=== PATIENT | female | born 1955 | race African-American/Black ===

== ENCOUNTER 2019-08-02 17:14 | Inpatient (IN) ==
[2019-08-02] MEDS ORDERED: ONDANSETRON 4 MG/2 ML VIAL IV PRN (22:32)
[2019-08-02] MEDS ORDERED: PROMETHAZINE 25 MG/1 ML VIAL IM PRN (22:32)
[2019-08-02] MEDS ORDERED: diphenhydrAMINE CAP 25 MG CAPSULE PO PRN (22:32)
[2019-08-02] MEDS ORDERED: NICOTINE 21 MG/24 HR PATCH TRANSDERM PRN (22:32)
[2019-08-02] MEDS ORDERED: MORPHINE 4 MG/1 ML VIAL IV PRN (22:32)
[2019-08-02] MEDS ORDERED: BISACODYL 5 MG TABLET PO PRN (22:32)
[2019-08-02] MEDS ORDERED: ACETAMINOPHEN 325 MG TABLET PO PRN (22:32)
[2019-08-02] MEDS ORDERED: methylPREDNISolone SOD SUC 125 MG/2 ML VIAL IV ONE (23:00)
[2019-08-02 23:03] LABS: Basophils % 0.1 % (0.0-0.8); Eosinophils # 0.1 10*3/uL (0.0-0.87); Eosinophils % 0.8 % (0.00-10.9); Hemoglobin 8.3 GM/DL (12.0-16.0); Immature Granulocytes % 0.5 %; Immature Granulocytes Absolute 0.06 #; Lymphocytes # 1.3 10*3/uL (1.4-4.0); Mean Corpuscular HGB Conc 30.7 GM/DL (32-36); Mean Corpuscular Volume 87.9 FL (87-102); Mean Platelet Volume 9.1 FL (9.6-12.0); Neutrophils % 82.6 % (38.7-73.9); Platelet Count 456 T/CUMM (130-400); Red Blood Count 3.07 MC/CUMM (3.8-5.5); Red Cell Distribution Width 15.8 % (9.3-17.3)
[2019-08-02 23:31] LABS: Risk Ratio 3.1; VLDL CHOLESTEROL 30.4 MG/DL
[2019-08-02 23:34] LABS: Folate 4.9 NG/ML (5.4-24.0); Vitamin B12 636 PG/ML (211-911)
[2019-08-02 23:38] LABS: Alanine Aminotransferase 13 U/L (13-56); Albumin 2.2 G/DL (3.4-5.0); Alkaline Phosphatase 113 U/L (45-117); Aspartate Amino Transferase 10 U/L (0-37); Bilirubin,Total < 0.39 MG/DL (0.2-1.0); Blood Urea Nitrogen 26 MG/DL (7-18); Calcium 8.8 MG/DL (8.5-10.1); Glucose 210 MG/DL (74-106); Osmolality,Calculated 267.1 MOS/KG (273-304); Total Protein 7.9 G/DL (6.4-8.3)
[2019-08-02 23:40] LABS: Estimated Glom Filtration Rate 0 ML/MIN
[2019-08-03 00:07] LABS: Sedimentation Rate-Westergren 88 MM/HR (0-30)
[2019-08-03] MEDS ORDERED: rOPINIRole 0.25 MG TABLET PO ONE ×2 (00:18→23:30)
[2019-08-03] MEDS: ALBUTEROL/IPRATROPIUM 3 ML NEB RESP TX SCH ×4 (01:01→19:35)
[2019-08-03] MEDS: ZALEPLON 5 MG CAPSULE PO PRN ×2 (03:05→21:23)
[2019-08-03] MEDS ORDERED: DEXTROSE 50% 25 GM/50 ML VIAL IV PRN (03:49)
[2019-08-03] MEDS ORDERED: GLUCAGON 1 MG VIAL IM PRN (03:49)
[2019-08-03 04:15] LABS: Amorphous Crystals,Urine Occasional /HPF (Few); Apearance,Urine Slightly Hazy (Clear); Bacteria,Urine Occasional /HPF (Few); Bilirubin,Urine Negative (Negative); Blood, Urine Small mg/dL (Negative); Glucose,Urine (UA) 150 mg/dL (Negative); Ketones,Urine Negative (Negative); Nitrite,Urine Negative (Negative); Protein,Urine >=500 MG/DL; RBC,Urine 1 /HPF (0-4); Squamous Epithelial Cell,Urine Occasional /HPF (0-10); Urine Color Yellow (Yellow); Urine Specific Gravity 1.005 (1.001-1.035); Urine Urobilinogen < 2.0 EU/DL (0.2-1.0); WBC,Urine 1 /HPF (0-6)
[2019-08-03] MEDS ORDERED: FUROSEMIDE 40 MG/4 ML VIAL IV SCH (08:00)
[2019-08-03] MEDS: INSULIN REGULAR 100 UNIT/ML SUBCUT SCH ×4 (08:36→21:20)
[2019-08-03 08:48] LABS: Hemoglobin A1 (Alkaline) 97.1 % (96.5-98.5); Hemoglobin A2 (Alkaline) 2.9 % (1.5-3.5)
[2019-08-03] MEDS ORDERED: ENALAPRIL 10 MG TABLET PO SCH (12:30)
[2019-08-03] MEDS ORDERED: amLODIPine 5 MG TABLET PO SCH (12:30)
[2019-08-03] MEDS ORDERED: DILTIAZEM CD 120 MG CAPSULE PO SCH (12:42)
[2019-08-03] MEDS ORDERED: hydrALAZINE 20 MG/1 ML VIAL IV PRN (12:43)
[2019-08-03] MEDS: metOLazone 5 MG TABLET PO SCH (15:34)
[2019-08-03] MEDS: FUROSEMIDE 40 MG/4 ML VIAL IV SCH (15:34)
[2019-08-03] MEDS ORDERED: amLODIPine 10 MG TABLET PO ONE (18:43)
[2019-08-03] MEDS: carvediloL 12.5 MG TABLET PO SCH (21:20)
[2019-08-03] MEDS: LOXAPINE SUCCINATE 10 MG PO SCH (21:20)
[2019-08-04] MEDS: ALBUTEROL/IPRATROPIUM 3 ML NEB RESP TX SCH ×4 (01:42→19:07)
[2019-08-04] MEDS: LEVOTHYROXINE 150 MCG TABLET PO SCH (06:16)
[2019-08-04] MEDS: INSULIN LISPRO 100 UNIT/ML SUBCUT SCH (08:25)
[2019-08-04] MEDS: INSULIN REGULAR 100 UNIT/ML SUBCUT SCH ×4 (08:25→20:36)
[2019-08-04] MEDS: FUROSEMIDE 40 MG/4 ML VIAL IV SCH ×2 (08:26→15:57)
[2019-08-04] MEDS: INSULIN GLARGINE 100 UNIT/ML SUBCUT SCH (08:26)
[2019-08-04] MEDS: amLODIPine 10 MG TABLET PO SCH (08:26)
[2019-08-04] MEDS: carvediloL 12.5 MG TABLET PO SCH ×2 (08:27→20:36)
[2019-08-04] MEDS: LOXAPINE SUCCINATE 10 MG PO SCH (08:27)
[2019-08-04] MEDS: metOLazone 5 MG TABLET PO SCH (08:27)
[2019-08-04 08:56] LABS: Osmolality,Calculated 259.9 MOS/KG (273-304)
[2019-08-04] MEDS ORDERED: BENZTROPINE 1 MG TABLET PO SCH (09:00)
[2019-08-04] MEDS ORDERED: SERTRALINE 25 MG TABLET PO SCH (09:00)
[2019-08-04] MEDS ORDERED: SODIUM POLYSTYRENE SULFATE 15 GM/60 ML BOTTLE PO STA (09:19)
[2019-08-04 17:07] LABS: Calcium 8.8 MG/DL (8.5-10.1); Osmolality,Calculated 261.6 MOS/KG (273-304)
[2019-08-04] MEDS: SERTRALINE 25 MG TABLET PO SCH (20:36)
[2019-08-04] MEDS: BENZTROPINE 1 MG TABLET PO SCH (20:36)
[2019-08-04] MEDS: LOXAPINE SUCCINATE 20 MG PO SCH (20:37)
[2019-08-05] MEDS: ALBUTEROL/IPRATROPIUM 3 ML NEB RESP TX SCH ×4 (00:46→20:05)
[2019-08-05 05:03] LABS: Basophils % 0.3 % (0.0-0.8); Eosinophils # 0.1 10*3/uL (0.0-0.87); Eosinophils % 0.5 % (0.00-10.9); Hematocrit 25.3 VOL% (35.7-47.0); Hemoglobin 7.7 GM/DL (12.0-16.0); Immature Granulocytes % 0.6 %; Immature Granulocytes Absolute 0.08 #; Lymphocytes # 1.7 10*3/uL (1.4-4.0); Lymphocytes % 13.1 % (21.3-54.2); Mean Corpuscular HGB Conc 30.4 GM/DL (32-36); Mean Corpuscular Volume 87.8 FL (87-102); Mean Platelet Volume 9.1 FL (9.6-12.0); Monocytes % 7.7 % (1.7-12.7); Neutrophils % 77.8 % (38.7-73.9); Platelet Count 493 T/CUMM (130-400); Red Blood Count 2.88 MC/CUMM (3.8-5.5); Red Cell Distribution Width 15.6 % (9.3-17.3); White Blood Count 13.3 T/CUMM (4-12)
[2019-08-05 05:28] LABS: Calcium 8.8 MG/DL (8.5-10.1); Osmolality,Calculated 267.4 MOS/KG (273-304)
[2019-08-05] MEDS: LEVOTHYROXINE 150 MCG TABLET PO SCH (06:13)
[2019-08-05] MEDS: INSULIN REGULAR 100 UNIT/ML SUBCUT SCH ×4 (08:59→23:27)
[2019-08-05] MEDS: amLODIPine 10 MG TABLET PO SCH (09:00)
[2019-08-05] MEDS: carvediloL 12.5 MG TABLET PO SCH ×2 (09:00→23:26)
[2019-08-05] MEDS: FUROSEMIDE 40 MG/4 ML VIAL IV SCH (09:00)
[2019-08-05] MEDS: INSULIN LISPRO 100 UNIT/ML SUBCUT SCH (09:02)
[2019-08-05] MEDS: INSULIN GLARGINE 100 UNIT/ML SUBCUT SCH (09:03)
[2019-08-05] MEDS: FUROSEMIDE 80 MG TABLET PO SCH (17:53)
[2019-08-05] MEDS: BENZTROPINE 1 MG TABLET PO SCH (23:26)
[2019-08-05] MEDS: SERTRALINE 25 MG TABLET PO SCH (23:26)
[2019-08-05] MEDS: LOXAPINE SUCCINATE 20 MG PO SCH (23:27)
[2019-08-05] MEDS: ZALEPLON 5 MG CAPSULE PO PRN (23:32)
[2019-08-06] MEDS: ALBUTEROL/IPRATROPIUM 3 ML NEB RESP TX SCH ×4 (02:12→19:39)
[2019-08-06 03:44] LABS: Basophils % 0.1 % (0.0-0.8); Eosinophils # 0.1 10*3/uL (0.0-0.87); Eosinophils % 0.7 % (0.00-10.9); Hematocrit 23.9 VOL% (35.7-47.0); Hemoglobin 7.4 GM/DL (12.0-16.0); Immature Granulocytes % 0.5 %; Immature Granulocytes Absolute 0.07 #; Lymphocytes % 14.2 % (21.3-54.2); Mean Corpuscular Volume 86.6 FL (87-102); Mean Platelet Volume 9.2 FL (9.6-12.0); Monocytes % 9.1 % (1.7-12.7); Neutrophils % 75.4 % (38.7-73.9); Platelet Count 436 T/CUMM (130-400); Red Blood Count 2.76 MC/CUMM (3.8-5.5); Red Cell Distribution Width 15.4 % (9.3-17.3); White Blood Count 13.8 T/CUMM (4-12)
[2019-08-06 04:03] LABS: Calcium 8.3 MG/DL (8.5-10.1); Osmolality,Calculated 271.4 MOS/KG (273-304)
[2019-08-06] MEDS: LEVOTHYROXINE 150 MCG TABLET PO SCH (06:14)
[2019-08-06] MEDS: INSULIN GLARGINE 100 UNIT/ML SUBCUT SCH (09:01)
[2019-08-06] MEDS: INSULIN LISPRO 100 UNIT/ML SUBCUT SCH (09:02)
[2019-08-06] MEDS: carvediloL 12.5 MG TABLET PO SCH ×2 (09:03→21:50)
[2019-08-06] MEDS: FUROSEMIDE 80 MG TABLET PO SCH ×2 (09:03→15:25)
[2019-08-06] MEDS: amLODIPine 10 MG TABLET PO SCH (09:03)
[2019-08-06] MEDS: INSULIN REGULAR 100 UNIT/ML SUBCUT SCH ×4 (09:08→21:51)
[2019-08-06] MEDS ORDERED: SODIUM CHLORIDE 0.9% 1,000 ML IV PRN (10:01)
[2019-08-06] MEDS: POLYETHYLENE GLYCOL POWDER 17 GM PACK PO SCH ×2 (15:25→21:50)
[2019-08-06] MEDS: LOXAPINE SUCCINATE 20 MG PO SCH (21:50)
[2019-08-06] MEDS: SERTRALINE 25 MG TABLET PO SCH (21:50)
[2019-08-06] MEDS: PANTOPRAZOLE 40 MG TABLET PO SCH (21:50)
[2019-08-06] MEDS: BENZTROPINE 1 MG TABLET PO SCH (21:50)
[2019-08-06] MEDS: ZALEPLON 5 MG CAPSULE PO PRN (21:50)
[2019-08-07] MEDS: ALBUTEROL/IPRATROPIUM 3 ML NEB RESP TX SCH ×4 (00:37→19:45)
[2019-08-07 04:40] LABS: Basophils % 0.2 % (0.0-0.8); Eosinophils # 0.1 10*3/uL (0.0-0.87); Eosinophils % 0.6 % (0.00-10.9); Hematocrit 27.9 VOL% (35.7-47.0); Hemoglobin 8.9 GM/DL (12.0-16.0); Immature Granulocytes % 0.5 %; Immature Granulocytes Absolute 0.07 #; Lymphocytes # 1.6 10*3/uL (1.4-4.0); Lymphocytes % 12.2 % (21.3-54.2); Mean Corpuscular HGB Conc 31.9 GM/DL (32-36); Mean Corpuscular Volume 83.5 FL (87-102); Mean Platelet Volume 9.2 FL (9.6-12.0); Monocytes % 9.5 % (1.7-12.7); Platelet Count 417 T/CUMM (130-400); Red Blood Count 3.34 MC/CUMM (3.8-5.5); Red Cell Distribution Width 15.7 % (9.3-17.3); White Blood Count 12.8 T/CUMM (4-12)
[2019-08-07 05:44] LABS: Calcium 8.2 MG/DL (8.5-10.1); Osmolality,Calculated 274.1 MOS/KG (273-304)
[2019-08-07] MEDS: LEVOTHYROXINE 150 MCG TABLET PO SCH (06:25)
[2019-08-07] MEDS ORDERED: MAGNESIUM SULF RIDER 4 GM in PREMIX 1 EACH IV PRN (07:43)
[2019-08-07] MEDS ORDERED: MAGNESIUM SULF RIDER 2 GM in PREMIX 1 EACH IV PRN (07:43)
[2019-08-07] MEDS: carvediloL 12.5 MG TABLET PO SCH ×2 (09:43→21:46)
[2019-08-07] MEDS: POLYETHYLENE GLYCOL POWDER 17 GM PACK PO SCH ×3 (09:43→21:46)
[2019-08-07] MEDS: PANTOPRAZOLE 40 MG TABLET PO SCH ×2 (09:43→18:00)
[2019-08-07] MEDS: FUROSEMIDE 80 MG TABLET PO SCH (09:43)
[2019-08-07] MEDS: amLODIPine 10 MG TABLET PO SCH (09:43)
[2019-08-07] MEDS: INSULIN REGULAR 100 UNIT/ML SUBCUT SCH ×4 (09:44→21:47)
[2019-08-07] MEDS: INSULIN LISPRO 100 UNIT/ML SUBCUT SCH (09:44)
[2019-08-07] MEDS: INSULIN GLARGINE 100 UNIT/ML SUBCUT SCH (09:44)
[2019-08-07] MEDS ORDERED: SODIUM CHLORIDE 0.9% 1,000 ML IV SCH (15:00)
[2019-08-07] MEDS: ZALEPLON 5 MG CAPSULE PO PRN (21:46)
[2019-08-07] MEDS: SERTRALINE 25 MG TABLET PO SCH (21:46)
[2019-08-07] MEDS: BENZTROPINE 1 MG TABLET PO SCH (21:46)
[2019-08-07] MEDS: LOXAPINE SUCCINATE 20 MG PO SCH (21:47)
[2019-08-07 22:32] LABS: Calcium 8.7 MG/DL (8.5-10.1); Osmolality,Calculated 269.5 MOS/KG (273-304)
[2019-08-08] MEDS: ALBUTEROL/IPRATROPIUM 3 ML NEB RESP TX SCH ×3 (00:05→13:38)
[2019-08-08 03:19] LABS: Basophils % 0.2 % (0.0-0.8); Eosinophils # 0.1 10*3/uL (0.0-0.87); Eosinophils % 0.7 % (0.00-10.9); Hematocrit 29.9 VOL% (35.7-47.0); Hemoglobin 9.4 GM/DL (12.0-16.0); Immature Granulocytes % 0.5 %; Immature Granulocytes Absolute 0.07 #; Lymphocytes # 1.6 10*3/uL (1.4-4.0); Lymphocytes % 11.6 % (21.3-54.2); Mean Corpuscular HGB Conc 31.4 GM/DL (32-36); Mean Corpuscular Volume 84.5 FL (87-102); Monocytes % 9.1 % (1.7-12.7); Neutrophils % 77.9 % (38.7-73.9); Platelet Count 432 T/CUMM (130-400); Red Blood Count 3.54 MC/CUMM (3.8-5.5); Red Cell Distribution Width 15.7 % (9.3-17.3); White Blood Count 13.4 T/CUMM (4-12)
[2019-08-08 03:37] LABS: Calcium 8.2 MG/DL (8.5-10.1); Osmolality,Calculated 274.1 MOS/KG (273-304)
[2019-08-08] MEDS: LEVOTHYROXINE 150 MCG TABLET PO SCH (06:30)
[2019-08-08] MEDS: INSULIN REGULAR 100 UNIT/ML SUBCUT SCH ×2 (08:13→12:19)
[2019-08-08] MEDS ORDERED: propofoL 200 MG/20 ML VIAL IV ONE (09:00)
[2019-08-08] MEDS ORDERED: LIDOCAINE 2% 5 ML VIAL ONE (09:00)
[2019-08-08] MEDS: PANTOPRAZOLE 40 MG TABLET PO SCH (09:10)
[2019-08-08] MEDS: carvediloL 12.5 MG TABLET PO SCH (09:10)
[2019-08-08] MEDS: amLODIPine 10 MG TABLET PO SCH (09:10)
[2019-08-08] MEDS: INSULIN LISPRO 100 UNIT/ML SUBCUT SCH (09:10)
[2019-08-08] MEDS: INSULIN GLARGINE 100 UNIT/ML SUBCUT SCH (09:11)
[2019-08-08] MEDS: POLYETHYLENE GLYCOL POWDER 17 GM PACK PO SCH ×2 (09:11→15:23)
[2019-08-08 12:52] VITALS: BP 145/71
[2019-08-10] MEDS ORDERED: NON-FORMULARY MEDICATION (Dulaglutide [Trulicity] 1.5 MG) SUBCUT SCH (09:00)
== END 2019-08-08 15:26 | disposition home or self-care (01) | DRG 698 ==
LOC: SUATTDRO 20:44 → N.TELEN 20:44
PROVIDERS: ADMIT Internal Medicine; ATTEND Internal Medicine

== ENCOUNTER 2019-08-18 18:50 | Inpatient (IN) ==
[2019-08-18 20:23] LABS: Basophils % 0.1 % (0.0-0.8); Eosinophils # 0.1 10*3/uL (0.0-0.87); Eosinophils % 0.4 % (0.00-10.9); Hematocrit 28.8 VOL% (35.7-47.0); Hemoglobin 9.6 GM/DL (12.0-16.0); Immature Granulocytes % 0.7 %; Immature Granulocytes Absolute 0.09 #; Lymphocytes # 1.6 10*3/uL (1.4-4.0); Lymphocytes % 12.4 % (21.3-54.2); Mean Corpuscular HGB Conc 33.3 GM/DL (32-36); Mean Corpuscular Volume 79.3 FL (87-102); Mean Platelet Volume 8.8 FL (9.6-12.0); Monocytes % 7.5 % (1.7-12.7); Neutrophils % 78.9 % (38.7-73.9); Platelet Count 399 T/CUMM (130-400); Red Blood Count 3.63 MC/CUMM (3.8-5.5); Red Cell Distribution Width 14.5 % (9.3-17.3); White Blood Count 12.5 T/CUMM (4-12)
[2019-08-18 20:38] LABS: Apearance,Urine CLEAR (Clear); Bilirubin,Urine Negative (Negative); Blood, Urine Small mg/dL (Negative); Glucose,Urine (UA) 50 mg/dL (Negative); Ketones,Urine Negative (Negative); Nitrite,Urine Negative (Negative); Protein,Urine 100 MG/DL; Squamous Epithelial Cell,Urine Occasional /HPF (0-10); Urine Color Yellow (Yellow); Urine Specific Gravity 1.006 (1.001-1.035); Urine Urobilinogen < 2.0 EU/DL (0.2-1.0); WBC,Urine 1 /HPF (0-6)
[2019-08-18 20:47] LABS: Albumin 2.2 G/DL (3.4-5.0); Bilirubin,Total 0.4 MG/DL (0.2-1.0); Calcium 8.4 MG/DL (8.5-10.1); Osmolality,Calculated 240.2 MOS/KG (273-304); Total Protein 7.7 G/DL (6.4-8.3)
[2019-08-18] MEDS ORDERED: SODIUM CHLORIDE 0.9% 1,000 ML IV STA (21:48)
[2019-08-18] MEDS ORDERED: guaiFENesin/DM ER 600-30 MG TABLET PO PRN (22:04)
[2019-08-18] MEDS ORDERED: GLUCAGON 1 MG VIAL IM PRN (22:04)
[2019-08-18] MEDS ORDERED: ONDANSETRON 4 MG/2 ML VIAL IV PRN (22:04)
[2019-08-18] MEDS ORDERED: NICOTINE 21 MG/24 HR PATCH TRANSDERM PRN (22:04)
[2019-08-18] MEDS ORDERED: ZALEPLON 5 MG CAPSULE PO PRN (22:04)
[2019-08-18] MEDS ORDERED: LACTULOSE 20 GM/30 ML UDCUP PO PRN (22:04)
[2019-08-18] MEDS ORDERED: SODIUM CHLORIDE 3% INJ 500 ML IV SCH (22:30)
[2019-08-18] MEDS ORDERED: DEXTROSE 10% 250 ML BAG IV PRN (22:31)
[2019-08-18] MEDS: HEPARIN 5,000 UNIT/1 ML VIAL SUBCUT SCH (23:00)
[2019-08-18] MEDS ORDERED: TOLVAPTAN 15 MG TABLET PO ONE (23:00)
[2019-08-19] MEDS: rOPINIRole 0.25 MG TABLET PO SCH ×2 (00:21→21:23)
[2019-08-19] MEDS: LORazepam 0.5 MG TABLET PO PRN (02:00)
[2019-08-19 02:21] LABS: Basophils % 0.2 % (0.0-0.8); Eosinophils # 0.1 10*3/uL (0.0-0.87); Eosinophils % 0.7 % (0.00-10.9); Hematocrit 27.6 VOL% (35.7-47.0); Hemoglobin 9.1 GM/DL (12.0-16.0); Immature Granulocytes % 0.6 %; Immature Granulocytes Absolute 0.07 #; Lymphocytes # 1.6 10*3/uL (1.4-4.0); Lymphocytes % 12.8 % (21.3-54.2); Mean Corpuscular Volume 80.2 FL (87-102); Mean Platelet Volume 8.6 FL (9.6-12.0); Monocytes % 8.2 % (1.7-12.7); Neutrophils % 77.5 % (38.7-73.9); Platelet Count 375 T/CUMM (130-400); Red Blood Count 3.44 MC/CUMM (3.8-5.5); Red Cell Distribution Width 14.3 % (9.3-17.3); White Blood Count 12.4 T/CUMM (4-12)
[2019-08-19 02:56] LABS: Alanine Aminotransferase 15 U/L (13-56); Alkaline Phosphatase 92 U/L (45-117); Aspartate Amino Transferase 18 U/L (0-37); Bilirubin,Total < 0.39 MG/DL (0.2-1.0); Blood Urea Nitrogen 46 MG/DL (7-18); Calcium 8.1 MG/DL (8.5-10.1); Estimated Glom Filtration Rate 22 ML/MIN; Glucose 76 MG/DL (74-106); Osmolality,Calculated 248.5 MOS/KG (273-304); Total Protein 7.5 G/DL (6.4-8.3)
[2019-08-19] MEDS ORDERED: MAGNESIUM SULF RIDER 4 GM in PREMIX 1 EACH IV PRN (03:25)
[2019-08-19] MEDS ORDERED: POTASSIUM CHLORIDE 20 MEQ/15 ML UDCUP PO ONE (03:41)
[2019-08-19] MEDS: MAGNESIUM SULF RIDER 2 GM in PREMIX 1 EACH IV PRN ×2 (03:48→06:03)
[2019-08-19] MEDS: LEVOTHYROXINE 150 MCG TABLET PO SCH (06:03)
[2019-08-19] MEDS: INSULIN LISPRO 100 UNIT/ML SUBCUT SCH ×5 (08:03→21:23)
[2019-08-19] MEDS: amLODIPine 10 MG TABLET PO SCH (09:06)
[2019-08-19] MEDS: carvediloL 12.5 MG TABLET PO SCH ×2 (09:06→16:04)
[2019-08-19] MEDS: SERTRALINE 25 MG TABLET PO SCH (09:06)
[2019-08-19] MEDS: PANTOPRAZOLE 40 MG TABLET PO SCH (09:06)
[2019-08-19] MEDS: HEPARIN 5,000 UNIT/1 ML VIAL SUBCUT SCH ×2 (10:30→22:53)
[2019-08-19] MEDS: POTASSIUM CHLORIDE 20 MEQ TABLET PO PRN ×4 (12:06→17:46)
[2019-08-19] MEDS: SPIRONOLACTONE 25 MG TABLET PO SCH (12:07)
[2019-08-19] MEDS: FUROSEMIDE 40 MG/4 ML VIAL IV SCH (16:05)
[2019-08-19] MEDS ORDERED: NON-FORMULARY MEDICATION (Dulaglutide [Trulicity] 1.5 MG) SUBCUT SCH (17:52)
[2019-08-19] MEDS: BENZTROPINE 1 MG TABLET PO SCH (18:06)
[2019-08-19] MEDS: glipiZIDE 10 MG TABLET PO SCH (18:06)
[2019-08-19] MEDS: INSULIN GLARGINE 100 UNIT/ML SUBCUT SCH (18:09)
[2019-08-19] MEDS: LOXAPINE SUCCINATE 10 MG PO SCH (21:43)
[2019-08-20 06:03] LABS: Basophils % 0.3 % (0.0-0.8); Eosinophils # 0.1 10*3/uL (0.0-0.87); Hematocrit 27.9 VOL% (35.7-47.0); Immature Granulocytes % 0.5 %; Immature Granulocytes Absolute 0.05 #; Lymphocytes # 1.3 10*3/uL (1.4-4.0); Lymphocytes % 12.4 % (21.3-54.2); Mean Corpuscular HGB Conc 32.3 GM/DL (32-36); Mean Corpuscular Volume 81.3 FL (87-102); Neutrophils % 76.8 % (38.7-73.9); Platelet Count 411 T/CUMM (130-400); Red Blood Count 3.43 MC/CUMM (3.8-5.5); Red Cell Distribution Width 14.2 % (9.3-17.3); White Blood Count 10.7 T/CUMM (4-12)
[2019-08-20 06:22] LABS: Calcium 8.7 MG/DL (8.5-10.1); Osmolality,Calculated 254.9 MOS/KG (273-304)
[2019-08-20] MEDS: INSULIN LISPRO 100 UNIT/ML SUBCUT SCH ×5 (08:15→22:16)
[2019-08-20] MEDS: INSULIN GLARGINE 100 UNIT/ML SUBCUT SCH (09:21)
[2019-08-20] MEDS: FUROSEMIDE 40 MG/4 ML VIAL IV SCH ×2 (09:25→16:24)
[2019-08-20] MEDS: glipiZIDE 10 MG TABLET PO SCH (09:25)
[2019-08-20] MEDS: PANTOPRAZOLE 40 MG TABLET PO SCH (09:25)
[2019-08-20] MEDS: LEVOTHYROXINE 150 MCG TABLET PO SCH (09:25)
[2019-08-20] MEDS: BENZTROPINE 1 MG TABLET PO SCH (09:25)
[2019-08-20] MEDS: LOXAPINE SUCCINATE 10 MG PO SCH (09:26)
[2019-08-20] MEDS: carvediloL 12.5 MG TABLET PO SCH ×2 (09:26→16:24)
[2019-08-20] MEDS: SERTRALINE 25 MG TABLET PO SCH ×3 (09:26→22:17)
[2019-08-20] MEDS: SPIRONOLACTONE 25 MG TABLET PO SCH (09:26)
[2019-08-20] MEDS: amLODIPine 10 MG TABLET PO SCH (09:28)
[2019-08-20] MEDS: HEPARIN 5,000 UNIT/1 ML VIAL SUBCUT SCH ×2 (09:33→22:18)
[2019-08-20] MEDS: DOCUSATE SODIUM 100 MG CAPSULE PO PRN (10:06)
[2019-08-20] MEDS ORDERED: SIMETHICONE CHEW 125 MG TABLET PO PRN (15:57)
[2019-08-20] MEDS: LOXAPINE SUCCINATE 20 MG PO SCH (22:16)
[2019-08-20] MEDS: rOPINIRole 0.25 MG TABLET PO SCH (22:17)
[2019-08-20] MEDS: LORazepam 0.5 MG TABLET PO PRN (23:05)
[2019-08-21 06:23] LABS: Osmolality,Calculated 258.8 MOS/KG (273-304)
[2019-08-21] MEDS: LEVOTHYROXINE 150 MCG TABLET PO SCH (06:37)
[2019-08-21] MEDS ORDERED: CLORAZEPATE 3.75 MG TABLET PO ONE ×2 (09:22→21:30)
[2019-08-21] MEDS: INSULIN LISPRO 100 UNIT/ML SUBCUT SCH ×5 (09:23→20:58)
[2019-08-21] MEDS: amLODIPine 10 MG TABLET PO SCH (09:36)
[2019-08-21] MEDS: SPIRONOLACTONE 25 MG TABLET PO SCH (09:36)
[2019-08-21] MEDS: DOCUSATE SODIUM 100 MG CAPSULE PO PRN (09:36)
[2019-08-21] MEDS: glipiZIDE 10 MG TABLET PO SCH (09:36)
[2019-08-21] MEDS: BENZTROPINE 1 MG TABLET PO SCH ×2 (09:36→20:59)
[2019-08-21] MEDS: carvediloL 12.5 MG TABLET PO SCH ×2 (09:36→17:16)
[2019-08-21] MEDS: PANTOPRAZOLE 40 MG TABLET PO SCH (09:38)
[2019-08-21] MEDS: FUROSEMIDE 40 MG/4 ML VIAL IV SCH ×2 (09:39→17:16)
[2019-08-21] MEDS: HEPARIN 5,000 UNIT/1 ML VIAL SUBCUT SCH ×3 (09:42→22:05)
[2019-08-21] MEDS: INSULIN GLARGINE 100 UNIT/ML SUBCUT SCH (10:09)
[2019-08-21] MEDS: LOXAPINE SUCCINATE 20 MG PO SCH (20:58)
[2019-08-21] MEDS: SERTRALINE 25 MG TABLET PO SCH (20:59)
[2019-08-21] MEDS ORDERED: BENZTROPINE 1 MG TABLET PO SCH (21:00)
[2019-08-21] MEDS: rOPINIRole 0.25 MG TABLET PO SCH (21:00)
[2019-08-22] MEDS: LEVOTHYROXINE 150 MCG TABLET PO SCH (05:55)
[2019-08-22 06:01] LABS: Calcium 8.6 MG/DL (8.5-10.1); Osmolality,Calculated 254.1 MOS/KG (273-304)
[2019-08-22] MEDS: INSULIN LISPRO 100 UNIT/ML SUBCUT SCH ×5 (09:13→20:56)
[2019-08-22] MEDS: glipiZIDE 10 MG TABLET PO SCH (09:39)
[2019-08-22] MEDS: SPIRONOLACTONE 25 MG TABLET PO SCH (09:39)
[2019-08-22] MEDS: carvediloL 12.5 MG TABLET PO SCH ×2 (09:39→17:34)
[2019-08-22] MEDS: PANTOPRAZOLE 40 MG TABLET PO SCH (09:39)
[2019-08-22] MEDS: amLODIPine 10 MG TABLET PO SCH (09:39)
[2019-08-22] MEDS: FUROSEMIDE 40 MG/4 ML VIAL IV SCH (09:40)
[2019-08-22] MEDS: INSULIN GLARGINE 100 UNIT/ML SUBCUT SCH (09:40)
[2019-08-22] MEDS: HEPARIN 5,000 UNIT/1 ML VIAL SUBCUT SCH ×2 (10:23→22:46)
[2019-08-22] MEDS: FUROSEMIDE 40 MG TABLET PO SCH (15:51)
[2019-08-22] MEDS: ACETAMINOPHEN 325 MG TABLET PO PRN ×2 (15:56→21:16)
[2019-08-22] MEDS: LOXAPINE SUCCINATE 20 MG PO SCH (21:14)
[2019-08-22] MEDS: DOCUSATE SODIUM 100 MG CAPSULE PO PRN (21:15)
[2019-08-22] MEDS: BENZTROPINE 1 MG TABLET PO SCH (21:15)
[2019-08-22] MEDS: SERTRALINE 25 MG TABLET PO SCH (21:15)
[2019-08-22] MEDS: LORazepam 0.5 MG TABLET PO PRN (21:16)
[2019-08-22] MEDS: rOPINIRole 0.25 MG TABLET PO SCH (21:16)
[2019-08-23] MEDS: LEVOTHYROXINE 150 MCG TABLET PO SCH (05:31)
[2019-08-23 06:51] LABS: Calcium 8.8 MG/DL (8.5-10.1); Osmolality,Calculated 261.5 MOS/KG (273-304)
[2019-08-23 06:53] LABS: Calcium 8.9 MG/DL (8.5-10.1); Osmolality,Calculated 261.5 MOS/KG (273-304)
[2019-08-23] MEDS: INSULIN LISPRO 100 UNIT/ML SUBCUT SCH ×2 (10:27→10:29)
[2019-08-23] MEDS: SPIRONOLACTONE 25 MG TABLET PO SCH (10:27)
[2019-08-23] MEDS: FUROSEMIDE 40 MG TABLET PO SCH (10:27)
[2019-08-23] MEDS: carvediloL 12.5 MG TABLET PO SCH (10:27)
[2019-08-23] MEDS: amLODIPine 10 MG TABLET PO SCH (10:28)
[2019-08-23] MEDS: INSULIN GLARGINE 100 UNIT/ML SUBCUT SCH (10:28)
[2019-08-23] MEDS: glipiZIDE 10 MG TABLET PO SCH (10:28)
[2019-08-23] MEDS: PANTOPRAZOLE 40 MG TABLET PO SCH (10:28)
[2019-08-23] MEDS: HEPARIN 5,000 UNIT/1 ML VIAL SUBCUT SCH (11:35)
[2019-08-23 11:41] VITALS: BP 139/76
== END 2019-08-23 11:54 | disposition home or self-care (01) | DRG 640 ==
LOC: N.ED 18:50 → N.EDINP 22:04 → SUATTDRO 22:04 → N.ICU 22:25 → N.5E 08-19 17:22
PROVIDERS: ADMIT Family Medicine; ATTEND Internal Medicine

== ENCOUNTER 2019-09-13 16:13 | Inpatient (IN) ==
[2019-09-13] MEDS ORDERED: NICOTINE 21 MG/24 HR PATCH TRANSDERM PRN (19:53)
[2019-09-13] MEDS ORDERED: ALUMINUM/MAGNES/SIMETH MAX STR 30 ML UDCUP PO PRN (19:53)
[2019-09-13] MEDS ORDERED: ALBUTEROL/IPRATROPIUM 3 ML NEB RESP TX PRN (19:53)
[2019-09-13] MEDS ORDERED: ACETAMINOPHEN 325 MG TABLET PO PRN (19:53)
[2019-09-13] MEDS ORDERED: MORPHINE 4 MG/1 ML VIAL IV PRN (19:53)
[2019-09-13] MEDS ORDERED: diphenhydrAMINE CAP 25 MG CAPSULE PO PRN (19:53)
[2019-09-13] MEDS ORDERED: ONDANSETRON 4 MG/2 ML VIAL IV PRN (19:53)
[2019-09-13] MEDS ORDERED: hydrALAZINE 20 MG/1 ML VIAL IV PRN (19:53)
[2019-09-13] MEDS ORDERED: TOLVAPTAN 15 MG TABLET PO ONE (19:57)
[2019-09-13] MEDS ORDERED: SODIUM CHLORIDE 0.9% 500 ML IV ONE (19:58)
[2019-09-13 20:33] LABS: Basophils % 0.1 % (0.0-0.8); Eosinophils # 0.2 10*3/uL (0.0-0.87); Eosinophils % 1.6 % (0.00-10.9); Hematocrit 30.2 VOL% (35.7-47.0); Hemoglobin 9.4 GM/DL (12.0-16.0); Immature Granulocytes % 0.7 %; Immature Granulocytes Absolute 0.07 #; Lymphocytes # 1.7 10*3/uL (1.4-4.0); Lymphocytes % 17.6 % (21.3-54.2); Mean Corpuscular HGB Conc 31.1 GM/DL (32-36); Mean Corpuscular Volume 82.7 FL (87-102); Mean Platelet Volume 8.7 FL (9.6-12.0); Monocytes % 8.2 % (1.7-12.7); Neutrophils % 71.8 % (38.7-73.9); Platelet Count 419 T/CUMM (130-400); Red Blood Count 3.65 MC/CUMM (3.8-5.5); Red Cell Distribution Width 14.6 % (9.3-17.3); White Blood Count 9.7 T/CUMM (4-12)
[2019-09-13 20:53] LABS: Alanine Aminotransferase 13 U/L (13-56); Albumin 2.3 G/DL (3.4-5.0); Alkaline Phosphatase 89 U/L (45-117); Aspartate Amino Transferase 13 U/L (0-37); Bilirubin,Total < 0.39 MG/DL (0.2-1.0); Blood Urea Nitrogen 43 MG/DL (7-18); Calcium 8.3 MG/DL (8.5-10.1); Estimated Glom Filtration Rate 22 ML/MIN; Glucose 104 MG/DL (74-106); Osmolality,Calculated 250.3 MOS/KG (273-304); Total Protein 7.8 G/DL (6.4-8.3)
[2019-09-13] MEDS ORDERED: MAGNESIUM SULF RIDER 4 GM in PREMIX 1 EACH IV PRN (22:50)
[2019-09-13] MEDS ORDERED: MAGNESIUM SULF RIDER 2 GM in PREMIX 1 EACH IV PRN (22:50)
[2019-09-13] MEDS ORDERED: LOXAPINE SUCCINATE 10 MG PO SCH (23:30)
[2019-09-13 23:36] LABS: Calcium 8.4 MG/DL (8.5-10.1); Osmolality,Calculated 251.3 MOS/KG (273-304)
[2019-09-13] MEDS ORDERED: BENZTROPINE 1 MG TABLET PO SCH (23:55)
[2019-09-14] MEDS: rOPINIRole 0.25 MG TABLET PO SCH ×2 (00:01→20:44)
[2019-09-14] MEDS: hydrOXYzine HCL 25 MG TABLET PO PRN ×2 (00:01→23:31)
[2019-09-14] MEDS ORDERED: SODIUM CHLORIDE 3% IV SCH (00:30)
[2019-09-14] MEDS ORDERED: GLUCAGON 1 MG VIAL IM PRN (01:04)
[2019-09-14] MEDS ORDERED: DEXTROSE 10% 250 ML BAG IV PRN (01:13)
[2019-09-14] MEDS: INSULIN REGULAR 100 UNIT/ML SUBCUT SCH ×2 (06:18→12:18)
[2019-09-14 09:03] LABS: Calcium 8.6 MG/DL (8.5-10.1); Osmolality,Calculated 260.6 MOS/KG (273-304)
[2019-09-14] MEDS: SODIUM CHLORIDE 0.9% 1,000 ML IV SCH (09:24)
[2019-09-14] MEDS ORDERED: DILTIAZEM CD 120 MG CAPSULE PO SCH (17:41)
[2019-09-14] MEDS ORDERED: LEVOTHYROXINE 150 MCG TABLET PO SCH (17:41)
[2019-09-14] MEDS ORDERED: rOPINIRole 0.25 MG TABLET PO PRN (17:41)
[2019-09-14] MEDS ORDERED: hydrOXYzine HCL 25 MG TABLET PO PRN (17:41)
[2019-09-14] MEDS ORDERED: SERTRALINE 25 MG TABLET PO SCH (17:41)
[2019-09-14] MEDS ORDERED: LORazepam 0.5 MG TABLET PO PRN (17:41)
[2019-09-14] MEDS ORDERED: INSULIN LISPRO 100 UNIT/ML SUBCUT SCH (17:41)
[2019-09-14] MEDS: glipiZIDE 5 MG TABLET PO SCH (20:44)
[2019-09-14] MEDS: carvediloL 12.5 MG TABLET PO SCH (20:44)
[2019-09-14] MEDS: SODIUM BICARBONATE 650 MG TABLET PO SCH (20:44)
[2019-09-14] MEDS ORDERED: BENZTROPINE 1 MG TABLET PO SCH (21:00)
[2019-09-14] MEDS ORDERED: LOXAPINE SUCCINATE 20 MG PO SCH (21:00)
[2019-09-15] MEDS: INSULIN REGULAR 100 UNIT/ML SUBCUT SCH ×4 (01:35→12:05)
[2019-09-15] MEDS: SODIUM CHLORIDE 0.9% 1,000 ML IV SCH (01:37)
[2019-09-15 05:44] LABS: Calcium 8.7 MG/DL (8.5-10.1); Osmolality,Calculated 266.2 MOS/KG (273-304)
[2019-09-15] MEDS ORDERED: LEVOTHYROXINE 150 MCG TABLET PO SCH (06:30)
[2019-09-15] MEDS ORDERED: INSULIN LISPRO 100 UNIT/ML SUBCUT SCH (08:00)
[2019-09-15] MEDS ORDERED: SPIRONOLACTONE 25 MG TABLET PO SCH (09:00)
[2019-09-15] MEDS ORDERED: SERTRALINE 25 MG TABLET PO SCH (09:00)
[2019-09-15] MEDS ORDERED: INSULIN GLARGINE 100 UNIT/ML SUBCUT SCH (09:00)
[2019-09-15] MEDS ORDERED: BENZTROPINE 1 MG TABLET PO SCH (09:00)
[2019-09-15] MEDS ORDERED: DILTIAZEM CD 120 MG CAPSULE PO SCH (09:00)
[2019-09-15] MEDS: carvediloL 12.5 MG TABLET PO SCH (10:01)
[2019-09-15] MEDS: SODIUM BICARBONATE 650 MG TABLET PO SCH (10:01)
[2019-09-15] MEDS: glipiZIDE 5 MG TABLET PO SCH (10:02)
[2019-09-21] MEDS ORDERED: NON-FORMULARY MEDICATION (Dulaglutide [Trulicity] 1.5 MG) SUBCUT SCH (09:00)
== END 2019-09-15 17:03 | disposition home or self-care (01) | DRG 641 ==
LOC: SUATTDRO 18:12 → N.CC 18:12 → N.4E 09-14 17:40
PROVIDERS: ADMIT Internal Medicine; ATTEND Family Medicine

== ENCOUNTER 2019-09-30 00:57 | Inpatient (IN) ==
[2019-09-30] MEDS ORDERED: SODIUM CHLORIDE 0.9% 500 ML IV STA (01:23)
[2019-09-30] MEDS ORDERED: ONDANSETRON 4 MG/2 ML VIAL IV STA (01:23)
[2019-09-30 02:27] LABS: Basophils % 0.2 % (0.0-0.8); Eosinophils % 0.3 % (0.00-10.9); Hematocrit 30.3 VOL% (35.7-47.0); Hemoglobin 9.7 GM/DL (12.0-16.0); Immature Granulocytes % 0.8 %; Lymphocytes # 1.6 10*3/uL (1.4-4.0); Lymphocytes % 12.4 % (21.3-54.2); Mean Corpuscular Volume 79.5 FL (87-102); Mean Platelet Volume 8.7 FL (9.6-12.0); Monocytes % 7.7 % (1.7-12.7); Neutrophils % 78.6 % (38.7-73.9); Platelet Count 435 T/CUMM (130-400); Red Blood Count 3.81 MC/CUMM (3.8-5.5); Red Cell Distribution Width 14.7 % (9.3-17.3); White Blood Count 13.1 T/CUMM (4-12)
[2019-09-30 02:35] LABS: INR 0.9; PT Patient Result 10.1 SECS (9.6-12.2)
[2019-09-30 02:47] LABS: Alanine Aminotransferase 15 U/L (13-56); Albumin 2.5 G/DL (3.4-5.0); Alkaline Phosphatase 99 U/L (45-117); Aspartate Amino Transferase 19 U/L (0-37); Bilirubin,Total < 0.39 MG/DL (0.2-1.0); Blood Urea Nitrogen 55 MG/DL (7-18); Calcium 8.9 MG/DL (8.5-10.1); Estimated Glom Filtration Rate 22 ML/MIN; Glucose 133 MG/DL (74-106); Osmolality,Calculated 245.2 MOS/KG (273-304); Total Protein 8.6 G/DL (6.4-8.3)
[2019-09-30] MEDS ORDERED: POTASSIUM CHLORIDE 20 MEQ TABLET PO STA (02:56)
[2019-09-30] MEDS ORDERED: MAGNESIUM SULF RIDER 2 GM in PREMIX 1 EACH IV STA (02:56)
[2019-09-30] MEDS ORDERED: HYDROCORTISONE 100 MG VIAL IV STA (03:00)
[2019-09-30 03:02] LABS: Barbiturates Screen,Urine Negative (Negative); Benzodiazepines Screen,Urine Negative (Negative); Cannabinoid Screen,Urine Negative (Negative); Opiate Screen,Urine Negative (Negative); Phencyclidine Screen,Urine Negative (Negative)
[2019-09-30 03:08] LABS: Apearance,Urine CLEAR (Clear); Bacteria,Urine Occasional /HPF (Few); Bilirubin,Urine Negative (Negative); Blood, Urine Negative (Negative); Glucose,Urine (UA) 50 mg/dL (Negative); Ketones,Urine Negative (Negative); Nitrite,Urine Negative (Negative); Protein,Urine 100 MG/DL; RBC,Urine 1 /HPF (0-4); Squamous Epithelial Cell,Urine Occasional /HPF (0-10); Urine Color Yellow (Yellow); Urine Urobilinogen < 2.0 EU/DL (0.2-1.0); WBC,Urine 1 /HPF (0-6)
[2019-09-30] MEDS ORDERED: POTASSIUM CHLORIDE RIDER 10 MEQ in PREMIX 1 EACH IV PRN (04:07)
[2019-09-30] MEDS ORDERED: MAGNESIUM SULF RIDER 2 GM in PREMIX 1 EACH IV PRN (04:08)
[2019-09-30] MEDS ORDERED: MAGNESIUM SULF RIDER 4 GM in PREMIX 1 EACH IV PRN (04:08)
[2019-09-30] MEDS ORDERED: NICOTINE 21 MG/24 HR PATCH TRANSDERM PRN (04:11)
[2019-09-30] MEDS ORDERED: guaiFENesin/DM ER 600-30 MG TABLET PO PRN (04:11)
[2019-09-30] MEDS ORDERED: ACETAMINOPHEN 325 MG TABLET PO PRN (04:11)
[2019-09-30] MEDS ORDERED: PROMETHAZINE 25 MG/1 ML VIAL IM PRN (04:11)
[2019-09-30] MEDS ORDERED: ONDANSETRON 4 MG/2 ML VIAL IV PRN (04:11)
[2019-09-30] MEDS ORDERED: ALBUTEROL 2.5 MG/3 ML NEB RESP TX PRN (04:11)
[2019-09-30] MEDS ORDERED: DEXTROSE 50% 25 GM/50 ML VIAL IV PRN ×2 (04:11→06:14)
[2019-09-30] MEDS ORDERED: DOCUSATE SODIUM 100 MG CAPSULE PO PRN (04:11)
[2019-09-30] MEDS ORDERED: GLUCAGON 1 MG VIAL IM PRN (04:11)
[2019-09-30] MEDS ORDERED: hydrALAZINE 20 MG/1 ML VIAL IV PRN (04:11)
[2019-09-30] MEDS: SODIUM CHLORIDE 3% INJ 500 ML IV SCH ×3 (05:40→20:00)
[2019-09-30] MEDS: PANTOPRAZOLE 40 MG TABLET PO SCH (08:23)
[2019-09-30] MEDS: INSULIN LISPRO 100 UNIT/ML SUBCUT SCH ×4 (08:23→20:53)
[2019-09-30] MEDS: POTASSIUM CHLORIDE 20 MEQ TABLET PO SCH ×3 (09:36→19:03)
[2019-09-30 15:29] LABS: Calcium 8.8 MG/DL (8.5-10.1)
[2019-09-30 15:32] LABS: Osmolality,Calculated 254.8 MOS/KG (273-304)
[2019-09-30] MEDS: SERTRALINE 25 MG TABLET PO SCH (21:36)
[2019-09-30] MEDS: LOXAPINE 10 MG PO SCH (21:36)
[2019-09-30] MEDS: BENZTROPINE 1 MG TABLET PO SCH (21:36)
[2019-10-01 05:03] LABS: Basophils % 0.2 % (0.0-0.8); Eosinophils # 0.1 10*3/uL (0.0-0.87); Eosinophils % 0.5 % (0.00-10.9); Hematocrit 26.2 VOL% (35.7-47.0); Hemoglobin 8.2 GM/DL (12.0-16.0); Immature Granulocytes % 0.6 %; Immature Granulocytes Absolute 0.06 #; Lymphocytes # 1.2 10*3/uL (1.4-4.0); Lymphocytes % 12.2 % (21.3-54.2); Mean Corpuscular HGB Conc 31.3 GM/DL (32-36); Mean Corpuscular Volume 81.6 FL (87-102); Mean Platelet Volume 8.9 FL (9.6-12.0); Monocytes % 9.6 % (1.7-12.7); Neutrophils % 76.9 % (38.7-73.9); Platelet Count 432 T/CUMM (130-400); Red Blood Count 3.21 MC/CUMM (3.8-5.5); Red Cell Distribution Width 14.9 % (9.3-17.3); White Blood Count 10.2 T/CUMM (4-12)
[2019-10-01] MEDS: SODIUM CHLORIDE 0.9% 1,000 ML IV SCH ×3 (05:38→23:30)
[2019-10-01] MEDS: SODIUM CHLORIDE 3% INJ 500 ML IV SCH (05:39)
[2019-10-01 05:50] LABS: Calcium 8.6 MG/DL (8.5-10.1); Osmolality,Calculated 274.1 MOS/KG (273-304)
[2019-10-01] MEDS: INSULIN LISPRO 100 UNIT/ML SUBCUT SCH ×5 (09:08→21:00)
[2019-10-01] MEDS: PANTOPRAZOLE 40 MG TABLET PO SCH (09:09)
[2019-10-01 12:44] LABS: Osmolality, Serum 261 mOsm/kg (275 - 295)
[2019-10-01 13:21] LABS: Osmolality, Urine 245 mOsm/kg (150 - 1150)
[2019-10-01] MEDS ORDERED: rOPINIRole 0.25 MG TABLET PO PRN (15:19)
[2019-10-01] MEDS ORDERED: hydrOXYzine HCL 25 MG TABLET PO PRN (15:19)
[2019-10-01] MEDS: SODIUM BICARBONATE 650 MG TABLET PO SCH ×2 (15:58→21:00)
[2019-10-01] MEDS: BENZTROPINE 1 MG TABLET PO SCH (21:00)
[2019-10-01] MEDS: carvediloL 12.5 MG TABLET PO SCH (21:00)
[2019-10-01] MEDS ORDERED: BENZTROPINE 1 MG TABLET PO SCH ×2 (21:00→21:30)
[2019-10-01] MEDS ORDERED: SERTRALINE 25 MG TABLET PO SCH (21:00)
[2019-10-01] MEDS ORDERED: LOXAPINE SUCCINATE 20 MG PO SCH (21:00)
[2019-10-01] MEDS: SERTRALINE 25 MG TABLET PO SCH (21:01)
[2019-10-01] MEDS: LOXAPINE 10 MG PO SCH (22:51)
[2019-10-02] MEDS: LORazepam 0.5 MG TABLET PO PRN ×2 (01:13→21:16)
[2019-10-02 06:35] LABS: Calcium 8.7 MG/DL (8.5-10.1); Osmolality,Calculated 271.9 MOS/KG (273-304)
[2019-10-02] MEDS: INSULIN LISPRO 100 UNIT/ML SUBCUT SCH ×7 (07:21→21:06)
[2019-10-02] MEDS: PANTOPRAZOLE 40 MG TABLET PO SCH (08:48)
[2019-10-02] MEDS: DILTIAZEM CD 120 MG CAPSULE PO SCH (08:48)
[2019-10-02] MEDS: SODIUM BICARBONATE 650 MG TABLET PO SCH ×3 (08:48→21:11)
[2019-10-02] MEDS: LEVOTHYROXINE 150 MCG TABLET PO SCH (08:48)
[2019-10-02] MEDS: carvediloL 12.5 MG TABLET PO SCH ×2 (08:48→21:09)
[2019-10-02] MEDS: SODIUM CHLORIDE 0.9% 1,000 ML IV SCH (17:38)
[2019-10-02] MEDS: BENZTROPINE 1 MG TABLET PO SCH (21:10)
[2019-10-02] MEDS: SERTRALINE 25 MG TABLET PO SCH (21:12)
[2019-10-02] MEDS ORDERED: LOXAPINE 10 MG PO SCH (22:30)
[2019-10-03] MEDS: SODIUM CHLORIDE 0.9% 1,000 ML IV SCH ×2 (03:48→10:25)
[2019-10-03 05:44] LABS: Calcium 8.6 MG/DL (8.5-10.1); Osmolality,Calculated 276.7 MOS/KG (273-304)
[2019-10-03 07:51] VITALS: BP 158/85
[2019-10-03] MEDS: INSULIN LISPRO 100 UNIT/ML SUBCUT SCH ×2 (08:28)
[2019-10-03] MEDS: carvediloL 12.5 MG TABLET PO SCH (08:29)
[2019-10-03] MEDS: DILTIAZEM CD 120 MG CAPSULE PO SCH (08:29)
[2019-10-03] MEDS: SODIUM BICARBONATE 650 MG TABLET PO SCH (08:29)
[2019-10-03] MEDS: LEVOTHYROXINE 150 MCG TABLET PO SCH (08:30)
[2019-10-03] MEDS: PANTOPRAZOLE 40 MG TABLET PO SCH (08:30)
[2019-10-08] MEDS ORDERED: NF- (Dulaglutide [Trulicity] 1.5 MG) SUBCUT SCH (09:00)
== END 2019-10-03 10:41 | disposition home or self-care (01) | DRG 641 ==
LOC: N.ED 00:57 → SUATTDRO 04:11 → N.EDINP 04:11 → N.CC 07:03 → N.2E 10-01 15:06
PROVIDERS: ADMIT Internal Medicine; ATTEND Family Medicine

== ENCOUNTER 2019-12-24 19:07 | Inpatient (IN) ==
[2019-12-24] MEDS ORDERED: ONDANSETRON 4 MG/2 ML VIAL IV STA (19:48)
[2019-12-24] MEDS ORDERED: SODIUM CHLORIDE 0.9% 1,000 ML IV STA (19:48)
[2019-12-24 20:23] LABS: Basophils % 0.2 % (0.0-0.8); Eosinophils # 0.2 10*3/uL (0.0-0.87); Eosinophils % 0.9 % (0.00-10.9); Immature Granulocytes % 0.7 %; Immature Granulocytes Absolute 0.12 #; Lymphocytes # 1.9 10*3/uL (1.4-4.0); Lymphocytes % 11.3 % (21.3-54.2); Mean Corpuscular HGB Conc 29.9 GM/DL (32-36); Monocytes % 4.7 % (1.7-12.7); Neutrophils % 82.2 % (38.7-73.9); Platelet Count 460 T/CUMM (130-400); Red Blood Count 1.93 MC/CUMM (3.8-5.5); Red Cell Distribution Width 16.7 % (9.3-17.3); White Blood Count 17.1 T/CUMM (4-12)
[2019-12-24 20:26] LABS: Hematocrit 16.4 VOL% (35.7-47.0); Hemoglobin 4.9 GM/DL (12.0-16.0)
[2019-12-24 20:27] LABS: Apearance,Urine CLEAR (Clear); Bacteria,Urine Occasional /HPF (Few); Bilirubin,Urine Negative (Negative); Blood, Urine Small mg/dL (Negative); Glucose,Urine (UA) Negative (Negative); Ketones,Urine Negative (Negative); Nitrite,Urine Negative (Negative); Protein,Urine 30 MG/DL; RBC,Urine <1 /HPF (0-4); Squamous Epithelial Cell,Urine Occasional /HPF (0-10); Urine Color Colorless (Yellow); Urine Specific Gravity 1.006 (1.001-1.035); Urine Urobilinogen < 2.0 EU/DL (0.2-1.0)
[2019-12-24 20:43] LABS: Alanine Aminotransferase 18 U/L (13-56); Albumin 2.5 G/DL (3.4-5.0); Alkaline Phosphatase 92 U/L (45-117); Aspartate Amino Transferase 15 U/L (0-37); Bilirubin,Total < 0.39 MG/DL (0.2-1.0); Blood Urea Nitrogen 111 MG/DL (7-18); Calcium 9.4 MG/DL (8.5-10.1); Estimated Glom Filtration Rate 15 ML/MIN; Glucose 64 MG/DL (74-106); Osmolality,Calculated 287.2 MOS/KG (273-304); Total Protein 9.1 G/DL (6.4-8.3)
[2019-12-24 21:25] LABS: PT Patient Result 10.5 SECS (9.8-11.9)
[2019-12-24] MEDS ORDERED: PANTOPRAZOLE 40 MG VIAL IV STA (21:59)
[2019-12-24 22:37] LABS: Ferritin 6.5 ng/ml (8-252)
[2019-12-24] MEDS ORDERED: MAGNESIUM SULF RIDER 2 GM in PREMIX 1 EACH IV PRN (23:28)
[2019-12-24] MEDS ORDERED: SODIUM CHLORIDE 0.9% 1,000 ML IV PRN (23:28)
[2019-12-24] MEDS ORDERED: MAGNESIUM SULF RIDER 4 GM in PREMIX 1 EACH IV PRN (23:28)
[2019-12-25] MEDS: PANTOPRAZOLE INJ 200 MG in SODIUM CHLORIDE 0.9% 250 ML IV SCH (04:46)
[2019-12-25] MEDS ORDERED: GLUCAGON 1 MG VIAL IM PRN (05:18)
[2019-12-25] MEDS ORDERED: DEXTROSE 50% 25 GM/50 ML VIAL IV PRN (05:18)
[2019-12-25] MEDS ORDERED: DOCUSATE SODIUM 100 MG CAPSULE PO PRN (05:18)
[2019-12-25] MEDS ORDERED: ONDANSETRON 4 MG/2 ML VIAL IV PRN (05:18)
[2019-12-25 08:25] LABS: Basophils % 0.1 % (0.0-0.8); Eosinophils # 0.2 10*3/uL (0.0-0.87); Eosinophils % 1.3 % (0.00-10.9); Immature Granulocytes % 0.6 %; Immature Granulocytes Absolute 0.09 #; Lymphocytes # 1.3 10*3/uL (1.4-4.0); Lymphocytes % 8.5 % (21.3-54.2); Mean Corpuscular Volume 87.9 FL (87-102); Mean Platelet Volume 8.6 FL (9.6-12.0); Monocytes % 6.1 % (1.7-12.7); Neutrophils % 83.4 % (38.7-73.9); Platelet Count 407 T/CUMM (130-400); Red Cell Distribution Width 15.7 % (9.3-17.3); White Blood Count 14.8 T/CUMM (4-12)
[2019-12-25] MEDS ORDERED: DEXTROSE 10% 250 ML BAG IV PRN (08:31)
[2019-12-25] MEDS: INSULIN LISPRO 100 UNIT/ML SUBCUT SCH ×4 (08:34→18:21)
[2019-12-25 08:47] LABS: Hemoglobin 6.5 GM/DL (12.0-16.0); Red Blood Count 2.39 MC/CUMM (3.8-5.5)
[2019-12-25 08:50] LABS: Calcium 9.1 MG/DL (8.5-10.1); Osmolality,Calculated 296.5 MOS/KG (273-304)
[2019-12-25] MEDS ORDERED: SODIUM CHLORIDE 0.9% 1,000 ML IV PRN (08:52)
[2019-12-25] MEDS: POTASSIUM CHLORIDE RIDER 10 MEQ in PREMIX 1 EACH IV PRN ×3 (09:53→21:38)
[2019-12-25] MEDS ORDERED: FUROSEMIDE 20 MG/2 ML VIAL IV ONE ×2 (11:00→16:44)
[2019-12-25] MEDS ORDERED: METOPROLOL TARTRATE 5 MG/5 ML VIAL IV PRN (11:01)
[2019-12-25] MEDS: DEXT 5% NACL 0.45% KCL 10 MEQ 10 MEQ/1,000 ML BAG IV SCH (17:02)
[2019-12-25 17:54] LABS: Hematocrit 28.2 VOL% (35.7-47.0)
[2019-12-25 17:56] LABS: Hemoglobin 8.7 GM/DL (12.0-16.0)
[2019-12-25] MEDS: ACETAMINOPHEN 325 MG TABLET PO PRN (21:38)
[2019-12-26] MEDS: INSULIN LISPRO 100 UNIT/ML SUBCUT SCH ×4 (00:36→17:48)
[2019-12-26] MEDS: DEXT 5% NACL 0.45% KCL 10 MEQ 10 MEQ/1,000 ML BAG IV SCH ×2 (01:00→12:44)
[2019-12-26] MEDS: POTASSIUM CHLORIDE RIDER 10 MEQ in PREMIX 1 EACH IV PRN (01:21)
[2019-12-26] MEDS: PANTOPRAZOLE INJ 200 MG in SODIUM CHLORIDE 0.9% 250 ML IV SCH (02:00)
[2019-12-26] MEDS: ACETAMINOPHEN 325 MG TABLET PO PRN (02:18)
[2019-12-26 06:57] LABS: Basophils % 0.3 % (0.0-0.8); Eosinophils # 0.2 10*3/uL (0.0-0.87); Eosinophils % 1.5 % (0.00-10.9); Hematocrit 26.1 VOL% (35.7-47.0); Hemoglobin 8.6 GM/DL (12.0-16.0); Immature Granulocytes % 0.4 %; Immature Granulocytes Absolute 0.05 #; Lymphocytes # 1.5 10*3/uL (1.4-4.0); Lymphocytes % 13.4 % (21.3-54.2); Mean Corpuscular Volume 84.2 FL (87-102); Monocytes % 7.1 % (1.7-12.7); Neutrophils % 77.3 % (38.7-73.9); Platelet Count 398 T/CUMM (130-400); Red Cell Distribution Width 15.1 % (9.3-17.3); White Blood Count 11.2 T/CUMM (4-12)
[2019-12-26] MEDS ORDERED: LEVOTHYROXINE 100 MCG VIAL IV SCH (07:00)
[2019-12-26 07:28] LABS: Calcium 9.1 MG/DL (8.5-10.1); Osmolality,Calculated 291.5 MOS/KG (273-304)
[2019-12-26] MEDS ORDERED: LACTATED RINGERS 1,000 ML IV SCH (07:30)
[2019-12-26] MEDS ORDERED: ETOMIDATE 20 MG/10 ML VIAL IV ONE (09:00)
[2019-12-26] MEDS ORDERED: LIDOCAINE 2% 5 ML VIAL ONE (09:00)
[2019-12-26] MEDS ORDERED: ESMOLOL 100 MG/10 ML VIAL IV ONE (09:00)
[2019-12-26] MEDS ORDERED: propofoL 200 MG/20 ML VIAL IV ONE (09:00)
[2019-12-26] MEDS ORDERED: rOPINIRole 0.25 MG TABLET PO PRN ×2 (11:13→19:13)
[2019-12-26] MEDS ORDERED: LORazepam 0.5 MG TABLET PO PRN (19:13)
[2019-12-26] MEDS ORDERED: hydrOXYzine HCL 25 MG TABLET PO PRN (19:13)
[2019-12-26] MEDS ORDERED: metOLazone 5 MG TABLET PO SCH (19:30)
[2019-12-26] MEDS ORDERED: SERTRALINE 25 MG TABLET PO SCH ×2 (21:00)
[2019-12-26] MEDS ORDERED: BENZTROPINE 1 MG TABLET PO SCH (21:00)
[2019-12-26] MEDS ORDERED: LOXAPINE SUCCINATE 20 MG PO SCH (21:00)
[2019-12-26] MEDS ORDERED: GABAPENTIN 300 MG CAPSULE PO SCH (21:00)
[2019-12-26] MEDS: SODIUM BICARBONATE 650 MG TABLET PO SCH (22:21)
[2019-12-26] MEDS: FUROSEMIDE 40 MG TABLET PO SCH (22:22)
[2019-12-27] MEDS: INSULIN LISPRO 100 UNIT/ML SUBCUT SCH ×5 (00:15→13:14)
[2019-12-27] MEDS: PANTOPRAZOLE INJ 200 MG in SODIUM CHLORIDE 0.9% 250 ML IV SCH (03:35)
[2019-12-27] MEDS ORDERED: LEVOTHYROXINE 150 MCG TABLET PO SCH ×2 (06:30)
[2019-12-27 07:03] LABS: Basophils % 0.3 % (0.0-0.8); Eosinophils # 0.2 10*3/uL (0.0-0.87); Eosinophils % 1.3 % (0.00-10.9); Hematocrit 29.5 VOL% (35.7-47.0); Hemoglobin 9.1 GM/DL (12.0-16.0); Immature Granulocytes % 0.6 %; Immature Granulocytes Absolute 0.07 #; Lymphocytes # 1.5 10*3/uL (1.4-4.0); Lymphocytes % 12.7 % (21.3-54.2); Mean Corpuscular HGB Conc 30.8 GM/DL (32-36); Mean Corpuscular Volume 87.8 FL (87-102); Mean Platelet Volume 8.9 FL (9.6-12.0); Monocytes % 6.7 % (1.7-12.7); Neutrophils % 78.4 % (38.7-73.9); Platelet Count 472 T/CUMM (130-400); Red Blood Count 3.36 MC/CUMM (3.8-5.5); Red Cell Distribution Width 15.2 % (9.3-17.3); White Blood Count 11.9 T/CUMM (4-12)
[2019-12-27 07:48] LABS: Calcium 9.1 MG/DL (8.5-10.1); Osmolality,Calculated 287.4 MOS/KG (273-304)
[2019-12-27] MEDS ORDERED: glipiZIDE 10 MG TABLET PO SCH (08:00)
[2019-12-27] MEDS: SODIUM BICARBONATE 650 MG TABLET PO SCH (08:26)
[2019-12-27] MEDS: FUROSEMIDE 40 MG TABLET PO SCH (08:26)
[2019-12-27] MEDS ORDERED: GABAPENTIN 100 MG CAPSULE PO SCH (09:00)
[2019-12-27] MEDS ORDERED: DILTIAZEM CD 120 MG CAPSULE PO SCH (09:00)
[2019-12-27] MEDS ORDERED: PANTOPRAZOLE 40 MG TABLET PO SCH (09:00)
[2019-12-27] MEDS ORDERED: INSULIN GLARGINE 100 UNIT/ML SUBCUT SCH (09:00)
[2019-12-27] MEDS ORDERED: PANTOPRAZOLE 40 MG VIAL IV SCH (09:00)
[2019-12-27] MEDS: ACETAMINOPHEN 325 MG TABLET PO PRN (10:54)
[2019-12-27 11:52] VITALS: BP 167/83
[2020-01-02] MEDS ORDERED: NON-FORMULARY MEDICATION (Dulaglutide [Trulicity] 1.5 MG) SUBCUT SCH (09:00)
== END 2019-12-27 13:30 | disposition home or self-care (01) | DRG 378 ==
LOC: N.ED 19:07 → N.EDINP 21:56 → N.3E 12-25 01:10
PROVIDERS: ADMIT Internal Medicine; ATTEND Internal Medicine

== ENCOUNTER 2021-08-10 17:10 | Observation (INO) ==
[2021-08-10 17:41] LABS: Basophils % 0.2 % (0.0-0.8); Eosinophils # 0.2 10*3/uL (0.0-0.87); Eosinophils % 1.4 % (0.00-10.9); Hematocrit 22.2 VOL% (35.7-47.0); Hemoglobin 6.5 GM/DL (12.0-16.0); Immature Granulocytes % 1.1 %; Immature Granulocytes Absolute 0.14 #; Lymphocytes # 2.5 10*3/uL (1.4-4.0); Lymphocytes % 19.7 % (21.3-54.2); Mean Corpuscular HGB Conc 29.3 GM/DL (32-36); Mean Corpuscular Volume 94.1 FL (87-102); Mean Platelet Volume 9.2 FL (9.6-12.0); Neutrophils % 65.6 % (38.7-73.9); Platelet Count 314 T/CUMM (130-400); Red Blood Count 2.36 MC/CUMM (3.8-5.5); Red Cell Distribution Width 19.4 % (9.3-17.3); White Blood Count 12.5 T/CUMM (4-12)
[2021-08-10 17:53] LABS: PT Patient Result 11.2 SECS (10.5-12.0); Partial Thromboplastin Time 30.2 SECS (23.8-32.1)
[2021-08-10 18:09] LABS: Alanine Aminotransferase 13 U/L (13-56); Albumin 2.4 G/DL (3.4-5.0); Alkaline Phosphatase 111 U/L (45-117); Aspartate Amino Transferase 16 U/L (0-37); Bilirubin,Total < 0.39 MG/DL (0.20-1.00); Blood Urea Nitrogen 39 MG/DL (7-18); Calcium 8.8 MG/DL (8.5-10.1); Carbon Dioxide 31 MMOL/L (21-32); Estimated Glom Filtration Rate 14 ML/MIN; Glucose 113 MG/DL (74-106); Osmolality,Calculated 277.2 MOS/KG (273-304); Potassium 4.4 MMOL/L (3.5-5.1); Sodium 134 MMOL/L (136-145); Total Protein 7.7 G/DL (6.4-8.2)
[2021-08-11] MEDS ORDERED: GLUCAGON 1 MG VIAL IM PRN (01:01)
[2021-08-11] MEDS ORDERED: SODIUM CHLORIDE 0.9% 1,000 ML IV PRN (01:07)
[2021-08-11] MEDS ORDERED: DEXTROSE 10% 250 ML BAG IV PRN (01:16)
[2021-08-11 02:27] LABS: Folate 9.5 NG/ML (5.38-24.0)
[2021-08-11 02:34] LABS: % Iron Saturation 15.6 % (18-50); Ferritin 174.3 ng/mL (8-252)
[2021-08-11] MEDS ORDERED: PANTOPRAZOLE 40 MG VIAL IV SCH (03:00)
[2021-08-11 04:58] LABS: Basophils % 0.2 % (0.0-0.8); Eosinophils # 0.2 10*3/uL (0.0-0.87); Hemoglobin 7.1 GM/DL (12.0-16.0); Immature Granulocytes % 0.9 %; Immature Granulocytes Absolute 0.09 #; Lymphocytes # 1.7 10*3/uL (1.4-4.0); Lymphocytes % 17.5 % (21.3-54.2); Mean Corpuscular HGB Conc 29.6 GM/DL (32-36); Mean Corpuscular Volume 96.4 FL (87-102); Mean Platelet Volume 9.4 FL (9.6-12.0); Monocytes % 11.1 % (1.7-12.7); NRBC # 0.02 10*3/uL; Neutrophils % 68.3 % (38.7-73.9); Platelet Count 313 T/CUMM (130-400); Red Blood Count 2.49 MC/CUMM (3.8-5.5); Red Cell Distribution Width 19.2 % (9.3-17.3); White Blood Count 9.5 T/CUMM (4-12)
[2021-08-11 05:20] LABS: Alanine Aminotransferase 13 U/L (13-56); Albumin 2.6 G/DL (3.4-5.0); Alkaline Phosphatase 117 U/L (45-117); Aspartate Amino Transferase 14 U/L (0-37); Bilirubin,Total < 0.39 MG/DL (0.20-1.00); Blood Urea Nitrogen 43 MG/DL (7-18); Calcium 9.2 MG/DL (8.5-10.1); Carbon Dioxide 31 MMOL/L (21-32); Estimated Glom Filtration Rate 12 ML/MIN; Glucose 151 MG/DL (74-106); Osmolality,Calculated 277.5 MOS/KG (273-304); Potassium 4.2 MMOL/L (3.5-5.1); Sodium 132 MMOL/L (136-145); Total Protein 8.3 G/DL (6.4-8.2)
[2021-08-11] MEDS ORDERED: INSULIN LISPRO 100 UNIT/ML SUBCUT SCH (08:00)
[2021-08-11] MEDS: LEVOTHYROXINE 150 MCG TABLET PO SCH (11:11)
[2021-08-11] MEDS: carvediloL 12.5 MG TABLET PO SCH ×2 (11:11→21:46)
[2021-08-11] MEDS: PANTOPRAZOLE 40 MG VIAL IV SCH ×2 (11:30→21:46)
[2021-08-11] MEDS: INSULIN LISPRO 100 UNIT/ML SUBCUT SCH ×4 (12:33→23:46)
[2021-08-11] MEDS: SERTRALINE 25 MG TABLET PO SCH (21:46)
[2021-08-11] MEDS: LOXAPINE SUCCINATE 10 MG PO SCH (21:48)
[2021-08-12] MEDS: LEVOTHYROXINE 150 MCG TABLET PO SCH ×2 (05:11→05:36)
[2021-08-12 06:10] LABS: Basophils % 0.3 % (0.0-0.8); Eosinophils # 0.2 10*3/uL (0.0-0.87); Eosinophils % 1.9 % (0.00-10.9); Hematocrit 24.4 VOL% (35.7-47.0); Hemoglobin 7.2 GM/DL (12.0-16.0); Lymphocytes # 1.9 10*3/uL (1.4-4.0); Lymphocytes % 19.1 % (21.3-54.2); Mean Corpuscular HGB Conc 29.5 GM/DL (32-36); Mean Corpuscular Volume 92.4 FL (87-102); Mean Platelet Volume 9.3 FL (9.6-12.0); Monocytes % 11.7 % (1.7-12.7); Platelet Count 313 T/CUMM (130-400); Red Blood Count 2.64 MC/CUMM (3.8-5.5); Red Cell Distribution Width 19.1 % (9.3-17.3); White Blood Count 9.9 T/CUMM (4-12)
[2021-08-12 06:35] LABS: Calcium 9.4 MG/DL (8.5-10.1); Osmolality,Calculated 279.5 MOS/KG (273-304); Potassium 4.5 MMOL/L (3.5-5.1)
[2021-08-12] MEDS ORDERED: SODIUM CHLORIDE 0.9% 1,000 ML IV PRN (07:00)
[2021-08-12] MEDS: INSULIN LISPRO 100 UNIT/ML SUBCUT SCH ×4 (13:56→21:41)
[2021-08-12] MEDS: BISACODYL 5 MG TABLET PO SCH ×2 (13:56→21:41)
[2021-08-12] MEDS: carvediloL 12.5 MG TABLET PO SCH ×2 (13:56→20:55)
[2021-08-12] MEDS: PANTOPRAZOLE 40 MG VIAL IV SCH ×2 (13:57→20:55)
[2021-08-12] MEDS: ONDANSETRON 4 MG/2 ML VIAL IV PRN ×2 (15:05→20:55)
[2021-08-12] MEDS ORDERED: ACETAMINOPHEN 325 MG TABLET PO PRN (17:03)
[2021-08-12] MEDS ORDERED: POLYETHYLENE GLYCOL 3350/ELECTROLYTES 4,000 ML BOTTLE PO ONE (18:00)
[2021-08-12] MEDS: SERTRALINE 25 MG TABLET PO SCH (20:55)
[2021-08-12] MEDS ORDERED: MAGNESIUM CITRATE 300 ML BOTTLE PO ONE (21:00)
[2021-08-12] MEDS: LOXAPINE SUCCINATE 10 MG PO SCH (21:01)
[2021-08-13] MEDS ORDERED: rOPINIRole 0.25 MG TABLET PO PRN (01:56)
[2021-08-13 05:30] LABS: Basophils % 0.1 % (0.0-0.8); Eosinophils # 0.2 10*3/uL (0.0-0.87); Eosinophils % 2.1 % (0.00-10.9); Hematocrit 29.2 VOL% (35.7-47.0); Hemoglobin 8.6 GM/DL (12.0-16.0); Immature Granulocytes % 0.7 %; Immature Granulocytes Absolute 0.06 #; Lymphocytes # 1.7 10*3/uL (1.4-4.0); Lymphocytes % 18.9 % (21.3-54.2); Mean Corpuscular HGB Conc 29.5 GM/DL (32-36); Mean Corpuscular Volume 93.9 FL (87-102); Mean Platelet Volume 9.1 FL (9.6-12.0); Monocytes % 13.9 % (1.7-12.7); Neutrophils % 64.3 % (38.7-73.9); Platelet Count 256 T/CUMM (130-400); Red Blood Count 3.11 MC/CUMM (3.8-5.5); Red Cell Distribution Width 18.2 % (9.3-17.3); White Blood Count 9.1 T/CUMM (4-12)
[2021-08-13 06:15] LABS: Calcium 9.5 MG/DL (8.5-10.1); Osmolality,Calculated 274.2 MOS/KG (273-304); Potassium 4.5 MMOL/L (3.5-5.1)
[2021-08-13] MEDS: BISACODYL 5 MG TABLET PO SCH (06:15)
[2021-08-13] MEDS: LEVOTHYROXINE 150 MCG TABLET PO SCH (06:15)
[2021-08-13] MEDS ORDERED: SODIUM CHLORIDE 0.9% 1,000 ML IV SCH (06:30)
[2021-08-13] MEDS ORDERED: propofoL 200 MG/20 ML VIAL IV ONE ×2 (07:06→07:57)
[2021-08-13] MEDS ORDERED: LIDOCAINE 2% 5 ML VIAL ONE (07:06)
[2021-08-13] MEDS ORDERED: ETOMIDATE 20 MG/10 ML VIAL IV ONE (08:02)
[2021-08-13 09:11] VITALS: BP 173/80
[2021-08-13] MEDS: INSULIN LISPRO 100 UNIT/ML SUBCUT SCH (09:49)
[2021-08-13] MEDS: PANTOPRAZOLE 40 MG VIAL IV SCH (09:49)
[2021-08-13] MEDS: carvediloL 12.5 MG TABLET PO SCH (09:49)
== END 2021-08-13 12:29 | disposition home or self-care (01) ==
LOC: N.ED 17:10 → N.EDINP 17:10 → SUATTDRO 08-11 01:01 → N.TELES 08-11 06:57
PROVIDERS: ADMIT Emergency Medicine; ATTEND Internal Medicine Geriatric Medicine

== ENCOUNTER 2021-09-12 19:23 | Observation (INO) ==
[2021-09-12 20:11] LABS: Basophils % 0.1 % (0.0-0.8); Eosinophils # 0.2 10*3/uL (0.0-0.87); Eosinophils % 1.9 % (0.00-10.9); Hematocrit 22.6 VOL% (35.7-47.0); Hemoglobin 6.9 GM/DL (12.0-16.0); Immature Granulocytes % 0.5 %; Immature Granulocytes Absolute 0.05 #; Lymphocytes # 1.8 10*3/uL (1.4-4.0); Lymphocytes % 17.9 % (21.3-54.2); Mean Corpuscular HGB Conc 30.5 GM/DL (32-36); Mean Corpuscular Volume 93.8 FL (87-102); Mean Platelet Volume 9.1 FL (9.6-12.0); Monocytes % 10.5 % (1.7-12.7); Neutrophils % 69.1 % (38.7-73.9); Platelet Count 306 T/CUMM (130-400); Red Blood Count 2.41 MC/CUMM (3.8-5.5); Red Cell Distribution Width 17.2 % (9.3-17.3)
[2021-09-12 20:30] LABS: Albumin 2.6 G/DL (3.4-5.0); Bilirubin,Total 0.5 MG/DL (0.20-1.00); Calcium 9.1 MG/DL (8.5-10.1); Osmolality,Calculated 274.5 MOS/KG (273-304); Potassium 4.5 MMOL/L (3.5-5.1)
[2021-09-12] MEDS ORDERED: ALBUTEROL/IPRATROPIUM 3 ML NEB RESP TX STA (21:42)
[2021-09-12] MEDS ORDERED: DEXTROSE 10% 250 ML BAG IV PRN (21:47)
[2021-09-12] MEDS ORDERED: DEXTROSE 50% 25 GM/50 ML VIAL IV PRN (21:47)
[2021-09-12] MEDS ORDERED: ONDANSETRON 4 MG/2 ML VIAL IV PRN (21:47)
[2021-09-12] MEDS ORDERED: hydrALAZINE 20 MG/1 ML VIAL IV PRN (21:47)
[2021-09-12] MEDS ORDERED: MORPHINE 4 MG/1 ML VIAL IV PRN (21:47)
[2021-09-12] MEDS ORDERED: GLUCAGON 1 MG VIAL IM PRN ×2 (21:47)
[2021-09-12] MEDS ORDERED: ACETAMINOPHEN 325 MG TABLET PO PRN (21:47)
[2021-09-12] MEDS ORDERED: SODIUM CHLORIDE 0.9% 1,000 ML IV PRN ×2 (21:54→22:31)
[2021-09-13] MEDS: INSULIN LISPRO 100 UNIT/ML SUBCUT SCH ×4 (07:30→20:30)
[2021-09-13 07:40] LABS: Basophils % 0.1 % (0.0-0.8); Eosinophils # 0.2 10*3/uL (0.0-0.87); Eosinophils % 1.8 % (0.00-10.9); Hematocrit 25.1 VOL% (35.7-47.0); Hemoglobin 7.5 GM/DL (12.0-16.0); Immature Granulocytes % 0.3 %; Immature Granulocytes Absolute 0.03 #; Lymphocytes # 1.6 10*3/uL (1.4-4.0); Lymphocytes % 17.9 % (21.3-54.2); Mean Corpuscular HGB Conc 29.9 GM/DL (32-36); Mean Corpuscular Volume 91.3 FL (87-102); Mean Platelet Volume 8.8 FL (9.6-12.0); Monocytes % 12.4 % (1.7-12.7); Neutrophils % 67.5 % (38.7-73.9); Platelet Count 277 T/CUMM (130-400); Red Blood Count 2.75 MC/CUMM (3.8-5.5); Red Cell Distribution Width 18.2 % (9.3-17.3); White Blood Count 8.7 T/CUMM (4-12)
[2021-09-13 07:58] LABS: Calcium 9.6 MG/DL (8.5-10.1); Osmolality,Calculated 273.5 MOS/KG (273-304); Potassium 4.8 MMOL/L (3.5-5.1)
[2021-09-13 07:59] LABS: % Iron Saturation 21.1 % (18-50)
[2021-09-13] MEDS ORDERED: propofoL 200 MG/20 ML VIAL IV ONE ×2 (08:13→08:41)
[2021-09-13] MEDS ORDERED: ETOMIDATE 20 MG/10 ML VIAL IV ONE (08:13)
[2021-09-13] MEDS ORDERED: LIDOCAINE 2% 5 ML VIAL ONE (08:13)
[2021-09-13] MEDS ORDERED: SODIUM CHLORIDE 0.9% 1,000 ML IV PRN (11:16)
[2021-09-13] MEDS: SUCRALFATE 1 GM TABLET PO SCH ×2 (11:32→18:12)
[2021-09-13 16:10] LABS: Hematocrit 28.2 VOL% (35.7-47.0); Hemoglobin 8.4 GM/DL (12.0-16.0)
[2021-09-13] MEDS ORDERED: HEPARIN 10,000 UNIT/10 ML VIAL IV ONE (17:00)
[2021-09-13] MEDS: PANTOPRAZOLE 40 MG TABLET PO SCH (18:12)
[2021-09-13] MEDS ORDERED: PANTOPRAZOLE 40 MG TABLET PO SCH (19:00)
[2021-09-13] MEDS: FERROUS SULFATE 325 MG TABLET PO SCH (20:29)
[2021-09-13 22:42] LABS: Hematocrit 27.8 VOL% (35.7-47.0); Hemoglobin 8.5 GM/DL (12.0-16.0)
[2021-09-13] MEDS ORDERED: PANTOPRAZOLE 40 MG VIAL IV SCH (23:00)
[2021-09-14] MEDS: SUCRALFATE 1 GM TABLET PO SCH ×2 (00:11→06:16)
[2021-09-14 05:40] LABS: Basophils % 0.1 % (0.0-0.8); Eosinophils # 0.2 10*3/uL (0.0-0.87); Eosinophils % 1.8 % (0.00-10.9); Hemoglobin 8.2 GM/DL (12.0-16.0); Immature Granulocytes % 0.4 %; Immature Granulocytes Absolute 0.04 #; Lymphocytes # 1.4 10*3/uL (1.4-4.0); Lymphocytes % 16.1 % (21.3-54.2); Mean Corpuscular HGB Conc 30.4 GM/DL (32-36); Mean Corpuscular Volume 91.2 FL (87-102); Mean Platelet Volume 9.6 FL (9.6-12.0); Monocytes % 12.8 % (1.7-12.7); Neutrophils % 68.8 % (38.7-73.9); Platelet Count 260 T/CUMM (130-400); Red Blood Count 2.96 MC/CUMM (3.8-5.5); White Blood Count 8.9 T/CUMM (4-12)
[2021-09-14 05:58] LABS: Calcium 9.5 MG/DL (8.5-10.1); Osmolality,Calculated 269.4 MOS/KG (273-304); Potassium 4.1 MMOL/L (3.5-5.1)
[2021-09-14] MEDS: PANTOPRAZOLE 40 MG TABLET PO SCH (06:16)
[2021-09-14 07:27] VITALS: BP 164/75
[2021-09-14] MEDS: INSULIN LISPRO 100 UNIT/ML SUBCUT SCH ×2 (08:05→12:27)
[2021-09-14] MEDS: FERROUS SULFATE 325 MG TABLET PO SCH (10:44)
[2021-09-14 11:15] LABS: Hematocrit 29.1 VOL% (35.7-47.0); Hemoglobin 8.8 GM/DL (12.0-16.0)
== END 2021-09-14 11:35 | disposition home or self-care (01) ==
LOC: N.ED 19:23 → N.EDINP 19:23 → SUATTDRO 21:41 → N.EDINP 09-13 00:07 → N.5E 09-13 00:52
PROVIDERS: ADMIT Internal Medicine; ATTEND Internal Medicine

== ENCOUNTER 2022-03-17 02:56 | Observation (INO) ==
[2022-03-17 03:48] LABS: Basophils % 0.2 % (0.0-0.8); Eosinophils # 0.5 10*3/uL (0.0-0.87); Hematocrit 26.2 VOL% (35.7-47.0); Hemoglobin 7.6 GM/DL (12.0-16.0); Immature Granulocytes % 1.4 %; Immature Granulocytes Absolute 0.18 #; Lymphocytes # 1.8 10*3/uL (1.4-4.0); Lymphocytes % 13.8 % (21.3-54.2); Mean Platelet Volume 9.4 FL (9.6-12.0); Monocytes # 1.5 10*3/uL (0.11-0.8); Monocytes % 11.5 % (1.7-12.7); Neutrophils % 69.1 % (38.7-73.9); Platelet Count 369 T/CUMM (130-400); Red Blood Count 2.88 MC/CUMM (3.8-5.5); Red Cell Distribution Width 17.7 % (9.3-17.3); White Blood Count 13.2 T/CUMM (4-12)
[2022-03-17 04:43] LABS: Alanine Aminotransferase 11 U/L (13-56); Albumin 2.2 G/DL (3.4-5.0); Alkaline Phosphatase 144 U/L (45-117); Aspartate Amino Transferase 22 U/L (0-37); Bilirubin,Total < 0.39 MG/DL (0.20-1.00); Blood Urea Nitrogen 34 MG/DL (7-18); Calcium 9.3 MG/DL (8.5-10.1); Carbon Dioxide 27 MMOL/L (21-32); Chloride 92 MMOL/L (98-107); Glucose 150 MG/DL (74-106); Osmolality,Calculated 263.4 MOS/KG (273-304); Potassium 5.5 MMOL/L (3.5-5.1); Sodium 126 MMOL/L (136-145); Total Protein 8.6 G/DL (6.4-8.2)
[2022-03-17] MEDS ORDERED: SODIUM CHLORIDE 0.9% 250 ML IV STA (04:58)
[2022-03-17] MEDS ORDERED: ONDANSETRON 4 MG/2 ML VIAL IV PRN (05:26)
[2022-03-17] MEDS ORDERED: DEXTROSE 10% 250 ML BAG IV PRN (05:26)
[2022-03-17] MEDS ORDERED: hydrALAZINE 20 MG/1 ML VIAL IV PRN (05:26)
[2022-03-17] MEDS ORDERED: ACETAMINOPHEN 325 MG TABLET PO PRN (05:26)
[2022-03-17] MEDS ORDERED: GLUCAGON 1 MG VIAL IM PRN (05:26)
[2022-03-17] MEDS ORDERED: ALBUTEROL/IPRATROPIUM 3 ML NEB RESP TX PRN (05:47)
[2022-03-17] MEDS: INSULIN LISPRO 100 UNIT/ML SUBCUT SCH ×4 (07:37→20:30)
[2022-03-17] MEDS: PANTOPRAZOLE 40 MG TABLET PO SCH (08:06)
[2022-03-17] MEDS: SEVELAMER CARBONATE 800 MG TABLET PO SCH ×3 (08:06→17:14)
[2022-03-17] MEDS: FERROUS SULFATE 325 MG TABLET PO SCH ×2 (08:06→20:30)
[2022-03-17] MEDS: GABAPENTIN 300 MG CAPSULE PO SCH ×2 (08:06→20:31)
[2022-03-17] MEDS: LEVOTHYROXINE 175 MCG TABLET PO SCH (08:06)
[2022-03-17] MEDS ORDERED: FUROSEMIDE 40 MG/4 ML VIAL IV ONE (09:59)
[2022-03-17 12:28] LABS: Hepatitis B Core IgM Quant 0.17 Index; Hepatitis B Surface Ag Quant < 0.10 Index; Hepatitis B Surface Ag Result Non-Reactive (NonReactive); Hepatitis C Virus Ab Quant 0.05 Index; Hepatitis C Virus Ab Result Non-Reactive (NonReactive)
[2022-03-17] MEDS: BENZTROPINE 1 MG TABLET PO SCH (20:30)
[2022-03-17] MEDS: SERTRALINE 50 MG TABLET PO SCH (20:31)
[2022-03-17] MEDS: lamoTRIgine 100 MG TABLET PO SCH (20:31)
[2022-03-17] MEDS: MORPHINE 2 MG/1 ML SYRINGE IV PRN (20:38)
[2022-03-18 05:16] LABS: Basophils % 0.3 % (0.0-0.8); Eosinophils # 0.3 10*3/uL (0.0-0.87); Eosinophils % 2.8 % (0.00-10.9); Hematocrit 25.6 VOL% (35.7-47.0); Hemoglobin 7.2 GM/DL (12.0-16.0); Immature Granulocytes % 1.2 %; Immature Granulocytes Absolute 0.13 #; Lymphocytes # 1.6 10*3/uL (1.4-4.0); Mean Corpuscular HGB Conc 28.1 GM/DL (32-36); Mean Corpuscular Volume 91.1 FL (87-102); Mean Platelet Volume 9.3 FL (9.6-12.0); Monocytes # 1.4 10*3/uL (0.11-0.8); Monocytes % 12.4 % (1.7-12.7); Neutrophils % 69.3 % (38.7-73.9); Platelet Count 334 T/CUMM (130-400); Red Blood Count 2.81 MC/CUMM (3.8-5.5); Red Cell Distribution Width 17.7 % (9.3-17.3); White Blood Count 11.3 T/CUMM (4-12)
[2022-03-18 05:39] LABS: Alanine Aminotransferase 12 U/L (13-56); Albumin 2.2 G/DL (3.4-5.0); Alkaline Phosphatase 120 U/L (45-117); Aspartate Amino Transferase 15 U/L (0-37); Bilirubin,Total < 0.39 MG/DL (0.20-1.00); Blood Urea Nitrogen 30 MG/DL (7-18); Calcium 9.1 MG/DL (8.5-10.1); Carbon Dioxide 30 MMOL/L (21-32); Chloride 96 MMOL/L (98-107); Glucose 109 MG/DL (74-106); Osmolality,Calculated 268.7 MOS/KG (273-304); Potassium 5.5 MMOL/L (3.5-5.1); Sodium 131 MMOL/L (136-145)
[2022-03-18] MEDS: LEVOTHYROXINE 175 MCG TABLET PO SCH (06:33)
[2022-03-18] MEDS: INSULIN LISPRO 100 UNIT/ML SUBCUT SCH ×4 (07:50→20:53)
[2022-03-18] MEDS: SEVELAMER CARBONATE 800 MG TABLET PO SCH ×3 (08:10→16:28)
[2022-03-18] MEDS: GABAPENTIN 300 MG CAPSULE PO SCH ×2 (08:10→20:53)
[2022-03-18] MEDS: FERROUS SULFATE 325 MG TABLET PO SCH ×2 (08:10→20:53)
[2022-03-18] MEDS: PANTOPRAZOLE 40 MG TABLET PO SCH (08:10)
[2022-03-18] MEDS: lamoTRIgine 100 MG TABLET PO SCH (20:52)
[2022-03-18] MEDS: SERTRALINE 50 MG TABLET PO SCH (20:53)
[2022-03-18] MEDS: BENZTROPINE 1 MG TABLET PO SCH (20:53)
[2022-03-19] MEDS: MORPHINE 2 MG/1 ML SYRINGE IV PRN (00:22)
[2022-03-19 06:21] LABS: Calcium 9.3 MG/DL (8.5-10.1); Osmolality,Calculated 268.5 MOS/KG (273-304); Potassium 4.7 MMOL/L (3.5-5.1)
[2022-03-19 06:29] LABS: Basophils % 0.3 % (0.0-0.8); Eosinophils # 0.5 10*3/uL (0.0-0.87); Eosinophils % 4.4 % (0.00-10.9); Hemoglobin 8.1 GM/DL (12.0-16.0); Immature Granulocytes % 1.3 %; Immature Granulocytes Absolute 0.15 #; Lymphocytes # 2.1 10*3/uL (1.4-4.0); Mean Corpuscular HGB Conc 28.2 GM/DL (32-36); Mean Corpuscular Volume 92.6 FL (87-102); Mean Platelet Volume 9.2 FL (9.6-12.0); Monocytes # 1.7 10*3/uL (0.11-0.8); Monocytes % 14.8 % (1.7-12.7); Neutrophils % 60.2 % (38.7-73.9); Platelet Count 358 T/CUMM (130-400); Red Cell Distribution Width 17.9 % (9.3-17.3); White Blood Count 11.1 T/CUMM (4-12)
[2022-03-19 06:31] LABS: Hematocrit 28.7 VOL% (35.7-47.0)
[2022-03-19] MEDS: LEVOTHYROXINE 175 MCG TABLET PO SCH (07:08)
[2022-03-19] MEDS: INSULIN LISPRO 100 UNIT/ML SUBCUT SCH ×3 (08:22→15:32)
[2022-03-19] MEDS: PANTOPRAZOLE 40 MG TABLET PO SCH (08:28)
[2022-03-19] MEDS: GABAPENTIN 300 MG CAPSULE PO SCH ×2 (08:28→10:48)
[2022-03-19] MEDS: SEVELAMER CARBONATE 800 MG TABLET PO SCH ×3 (08:28→16:47)
[2022-03-19] MEDS: FERROUS SULFATE 325 MG TABLET PO SCH ×2 (08:28→17:06)
[2022-03-19] MEDS: METOPROLOL TARTRATE 25 MG TABLET PO SCH (09:28)
[2022-03-19 11:50] LABS: Arterial Base Excess iSTAT 3 MMOL/L (-2.5-2.5); Arterial Bicarbonate iSTAT 32.1 MMOL/L (20-26); Arterial O2 Saturation iSTAT 97 % (95-100); Arterial PCO2 iSTAT 76 MM HG (35-48); Arterial PO2 iSTAT 116 MM HG (80-95); Arterial Total CO2 iSTAT 34 MMO/L (23-27); Arterial pH iSTAT 7.234 (7.35-7.45)
[2022-03-19] MEDS: LACTULOSE 20 GM/30 ML UDCUP PO SCH ×2 (15:24→20:40)
[2022-03-19] MEDS: SERTRALINE 50 MG TABLET PO SCH (20:40)
[2022-03-19] MEDS: lamoTRIgine 100 MG TABLET PO SCH (20:40)
[2022-03-19] MEDS: BENZTROPINE 1 MG TABLET PO SCH (20:40)
[2022-03-20] MEDS: INSULIN LISPRO 100 UNIT/ML SUBCUT SCH ×3 (00:19→12:46)
[2022-03-20 03:40] LABS: Arterial Base Excess iSTAT 2 MMOL/L (-2.5-2.5); Arterial Bicarbonate iSTAT 30.2 MMOL/L (20-26); Arterial O2 Saturation iSTAT 48 % (95-100); Arterial PCO2 iSTAT 67 MM HG (35-48); Arterial PO2 iSTAT 31 MM HG (80-95); Arterial Total CO2 iSTAT 32 MMO/L (23-27); Arterial pH iSTAT 7.262 (7.35-7.45)
[2022-03-20 03:40] LABS: Arterial Base Excess iSTAT 3 MMOL/L (-2.5-2.5); Arterial Bicarbonate iSTAT 30.7 MMOL/L (20-26); Arterial O2 Saturation iSTAT 45 % (95-100); Arterial PCO2 iSTAT 67 MM HG (35-48); Arterial PO2 iSTAT 29 MM HG (80-95); Arterial Total CO2 iSTAT 33 MMO/L (23-27); Arterial pH iSTAT 7.268 (7.35-7.45)
[2022-03-20 03:52] LABS: Arterial Base Excess iSTAT 2 MMOL/L (-2.5-2.5); Arterial Bicarbonate iSTAT 29.7 MMOL/L (20-26); Arterial O2 Saturation iSTAT 90 % (95-100); Arterial PCO2 iSTAT 59 MM HG (35-48); Arterial PO2 iSTAT 65 MM HG (80-95); Arterial Total CO2 iSTAT 32 MMO/L (23-27); Arterial pH iSTAT 7.308 (7.35-7.45)
[2022-03-20 05:27] LABS: Calcium 8.4 MG/DL (8.5-10.1); Osmolality,Calculated 275.8 MOS/KG (273-304); Potassium 3.4 MMOL/L (3.5-5.1)
[2022-03-20 05:31] LABS: Basophils % 0.3 % (0.0-0.8); Eosinophils # 0.3 10*3/uL (0.0-0.87); Eosinophils % 3.5 % (0.00-10.9); Hematocrit 25.5 VOL% (35.7-47.0); Hemoglobin 7.2 GM/DL (12.0-16.0); Immature Granulocytes Absolute 0.09 #; Lymphocytes # 2.2 10*3/uL (1.4-4.0); Lymphocytes % 23.6 % (21.3-54.2); Mean Corpuscular HGB Conc 28.2 GM/DL (32-36); Mean Corpuscular Volume 93.1 FL (87-102); Monocytes # 1.4 10*3/uL (0.11-0.8); Monocytes % 14.4 % (1.7-12.7); Neutrophils % 57.2 % (38.7-73.9); Platelet Count 306 T/CUMM (130-400); Red Blood Count 2.74 MC/CUMM (3.8-5.5); Red Cell Distribution Width 17.6 % (9.3-17.3); White Blood Count 9.4 T/CUMM (4-12)
[2022-03-20] MEDS: LEVOTHYROXINE 175 MCG TABLET PO SCH (06:47)
[2022-03-20] MEDS: SEVELAMER CARBONATE 800 MG TABLET PO SCH ×2 (08:14→12:47)
[2022-03-20] MEDS: FERROUS SULFATE 325 MG TABLET PO SCH (08:15)
[2022-03-20] MEDS: LACTULOSE 20 GM/30 ML UDCUP PO SCH (08:15)
[2022-03-20] MEDS: PANTOPRAZOLE 40 MG TABLET PO SCH (08:15)
[2022-03-20] MEDS: METOPROLOL TARTRATE 25 MG TABLET PO SCH (08:15)
[2022-03-20] MEDS ORDERED: GABAPENTIN 300 MG CAPSULE PO ONE (10:20)
[2022-03-20 12:48] VITALS: BP 140/70
== END 2022-03-20 13:00 | disposition home health service (06) ==
LOC: N.ED 02:56 → N.EDINP 02:56 → SUATTDRO 05:26 → N.3E 06:22
PROVIDERS: ADMIT Internal Medicine; ATTEND Internal Medicine

== ENCOUNTER 2022-05-26 23:21 | Observation (INO) ==
[2022-05-27] MEDS ORDERED: PROMETHAZINE 25 MG/1 ML VIAL IM STA (00:52)
[2022-05-27] MEDS ORDERED: hydrALAZINE 20 MG/1 ML VIAL IM STA (02:09)
[2022-05-27 02:31] LABS: Bacteria,Urine Occasional /HPF (Few); Mucus,Urine Occasional /LPF (Occasional); RBC,Urine 1 /HPF (0-4); Squamous Epithelial Cell,Urine Occasional /HPF (0-10)
[2022-05-27 02:32] LABS: Bilirubin,Urine Negative (Negative); Blood, Urine Trace mg/dL (Negative); Glucose,Urine (UA) 100 mg/dL (Negative); Ketones,Urine Negative (Negative); Nitrite,Urine Negative (Negative); Protein,Urine 100 mg/dL (Negative); Urine Appearance Clear (Clear); Urine Color Yellow (Yellow); Urine Urobilinogen 0.2 eU/dL (<2.0)
[2022-05-27] MEDS ORDERED: ALBUTEROL/IPRATROPIUM 3 ML NEB RESP TX STA (03:10)
[2022-05-27] MEDS ORDERED: ONDANSETRON 4 MG/2 ML VIAL IV STA (03:10)
[2022-05-27] MEDS ORDERED: MORPHINE 2 MG/1 ML SYRINGE IV STA (03:10)
[2022-05-27] MEDS ORDERED: NITROGLYCERIN 2% OINT 1 INCH/GM PACK TOP STA (03:10)
[2022-05-27] MEDS ORDERED: FUROSEMIDE 100 MG/10 ML VIAL IV STA (03:10)
[2022-05-27] MEDS ORDERED: LORazepam 2 MG/1 ML VIAL ONE (03:23)
[2022-05-27] MEDS ORDERED: niCARdipine INJ 25 MG in SODIUM CHLORIDE 0.9% 240 ML IV PRN (03:29)
[2022-05-27 03:30] LABS: Basophils % 0.4 % (0.0-0.8); Eosinophils # 0.2 10*3/uL (0.0-0.87); Eosinophils % 1.8 % (0.00-10.9); Hematocrit 36.7 VOL% (35.7-47.0); Immature Granulocytes % 0.4 %; Immature Granulocytes Absolute 0.04 #; Lymphocytes # 3.2 10*3/uL (1.4-4.0); Lymphocytes % 28.5 % (21.3-54.2); Mean Corpuscular HGB Conc 29.4 GM/DL (32-36); Mean Corpuscular Volume 86.8 FL (87-102); Monocytes # 0.9 10*3/uL (0.11-0.8); Neutrophils % 60.9 % (38.7-73.9); Platelet Count 206 T/CUMM (130-400); Red Blood Count 4.23 MC/CUMM (3.8-5.5); Red Cell Distribution Width 16.9 % (9.3-17.3); White Blood Count 11.1 T/CUMM (4-12)
[2022-05-27 03:32] LABS: Hemoglobin 10.8 GM/DL (12.0-16.0)
[2022-05-27 03:39] LABS: PT Patient Result 11.2 SECS (10.1-12.1)
[2022-05-27] MEDS ORDERED: LORazepam 2 MG/1 ML VIAL IV STA (03:39)
[2022-05-27 04:03] LABS: ABG Base Excess -5.5 MMOL/L (-2.5-2.5); ABG HCO3 19.7 MMOL/L (20-26); ABG Oxygen Saturation 89.7 % (95-100); ABG PCO2 55.7 MM HG (35-48); ABG PH 7.219 (7.35-7.45); ABG PO2 76.3 MM HG (80-95); ABG TCO2 21.3 MMOL/L (23-27)
[2022-05-27 04:37] LABS: Chloride 97 MMOL/L (98-107); Potassium 3.8 MMOL/L (3.5-5.1); Sodium 131 MMOL/L (136-145)
[2022-05-27 04:40] LABS: Albumin 2.8 G/DL (3.4-5.0); Blood Urea Nitrogen 43 MG/DL (7-18); Calcium 8.9 MG/DL (8.5-10.1); Carbon Dioxide 22 MMOL/L (21-32); Glucose 218 MG/DL (74-106); Osmolality,Calculated 279.7 MOS/KG (273-304)
[2022-05-27 04:44] LABS: Alanine Aminotransferase 12 U/L (13-56); Aspartate Amino Transferase 15 U/L (0-37)
[2022-05-27 04:45] LABS: Bilirubin,Total < 0.39 MG/DL (0.20-1.00); Total Protein 9.2 G/DL (6.4-8.2)
[2022-05-27 04:47] LABS: Alkaline Phosphatase 150 U/L (45-117)
[2022-05-27] MEDS ORDERED: ALBUTEROL 2.5 MG/3 ML NEB RESP TX PRN (05:08)
[2022-05-27] MEDS ORDERED: GLUCAGON 1 MG VIAL IM PRN (05:08)
[2022-05-27] MEDS ORDERED: ONDANSETRON 4 MG/2 ML VIAL IV PRN (05:08)
[2022-05-27] MEDS ORDERED: ACETAMINOPHEN 325 MG TABLET PO PRN (05:08)
[2022-05-27] MEDS ORDERED: HydrOXYzine PAMOATE 25 MG CAPSULE PO PRN (05:11)
[2022-05-27] MEDS ORDERED: LACTULOSE 20 GM/30 ML UDCUP PO PRN (05:12)
[2022-05-27] MEDS ORDERED: rOPINIRole 0.25 MG TABLET PO PRN (05:14)
[2022-05-27] MEDS ORDERED: DEXTROSE 10% 250 ML BAG IV PRN (05:20)
[2022-05-27 06:16] VITALS: BP 162/81
[2022-05-27] MEDS: INSULIN LISPRO 100 UNIT/ML SUBCUT SCH ×4 (07:25→20:29)
[2022-05-27] MEDS: SUCRALFATE 1 GM TABLET PO SCH ×2 (08:28→20:29)
[2022-05-27] MEDS: SEVELAMER CARBONATE 800 MG TABLET PO SCH ×3 (08:28→17:59)
[2022-05-27] MEDS: LEVOTHYROXINE 175 MCG TABLET PO SCH (08:28)
[2022-05-27] MEDS: PANTOPRAZOLE 40 MG TABLET PO SCH (08:28)
[2022-05-27] MEDS: FERROUS SULFATE 325 MG TABLET PO SCH ×2 (08:28→20:29)
[2022-05-27] MEDS: INSULIN GLARGINE 100 UNIT/ML SUBCUT SCH (08:29)
[2022-05-27] MEDS: IPRATROPIUM 0.06% NASAL SPRAY 15 ML BOTTLE BOTH NARES SCH ×2 (08:30→20:29)
[2022-05-27] MEDS ORDERED: METOPROLOL TARTRATE 25 MG TABLET PO SCH (09:00)
[2022-05-27] MEDS ORDERED: INSULIN LISPRO 100 UNIT/ML SUBCUT SCH (09:00)
[2022-05-27 12:29] LABS: Hepatitis B Core IgM Quant 0.05 Index; Hepatitis B Surface Ag Quant < 0.10 Index; Hepatitis B Surface Ag Result Non-Reactive (NonReactive); Hepatitis C Virus Ab Quant 0.07 Index; Hepatitis C Virus Ab Result Non-Reactive (NonReactive)
[2022-05-27] MEDS ORDERED: MAGNESIUM SULF RIDER 2 GM/50 ML PREMIX IV ONE (13:14)
[2022-05-27] MEDS ORDERED: MONTELUKAST 10 MG TABLET PO SCH (21:00)
[2022-05-27] MEDS ORDERED: BENZTROPINE 1 MG TABLET PO SCH (21:00)
[2022-05-27] MEDS ORDERED: GABAPENTIN 300 MG CAPSULE PO SCH (21:00)
[2022-05-27] MEDS ORDERED: SERTRALINE 50 MG TABLET PO SCH (21:00)
[2022-05-27] MEDS ORDERED: LOXAPINE SUCCINATE 10 MG PO SCH (21:00)
[2022-05-28 05:20] LABS: Alanine Aminotransferase 9 U/L (13-56); Albumin 2.8 G/DL (3.4-5.0); Alkaline Phosphatase 131 U/L (45-117); Aspartate Amino Transferase 14 U/L (0-37); Bilirubin,Total < 0.39 MG/DL (0.20-1.00); Blood Urea Nitrogen 40 MG/DL (7-18); Calcium 8.9 MG/DL (8.5-10.1); Carbon Dioxide 23 MMOL/L (21-32); Chloride 98 MMOL/L (98-107); Glucose 80 MG/DL (74-106); Osmolality,Calculated 268.8 MOS/KG (273-304); Potassium 4.8 MMOL/L (3.5-5.1); Sodium 130 MMOL/L (136-145)
[2022-05-28 05:36] LABS: Basophils % 0.3 % (0.0-0.8); Eosinophils # 0.2 10*3/uL (0.0-0.87); Eosinophils % 2.3 % (0.00-10.9); Hematocrit 36.3 VOL% (35.7-47.0); Hemoglobin 10.7 GM/DL (12.0-16.0); Immature Granulocytes % 0.6 %; Immature Granulocytes Absolute 0.05 #; Lymphocytes # 1.1 10*3/uL (1.4-4.0); Lymphocytes % 12.1 % (21.3-54.2); Mean Corpuscular HGB Conc 29.5 GM/DL (32-36); Mean Corpuscular Volume 87.5 FL (87-102); Mean Platelet Volume 9.9 FL (9.6-12.0); Monocytes # 0.8 10*3/uL (0.11-0.8); Monocytes % 9.2 % (1.7-12.7); Neutrophils % 75.5 % (38.7-73.9); Platelet Count 213 T/CUMM (130-400); Red Blood Count 4.15 MC/CUMM (3.8-5.5); Red Cell Distribution Width 16.5 % (9.3-17.3); White Blood Count 8.8 T/CUMM (4-12)
[2022-05-28] MEDS: LEVOTHYROXINE 175 MCG TABLET PO SCH (05:53)
[2022-05-28] MEDS: INSULIN LISPRO 100 UNIT/ML SUBCUT SCH ×2 (07:48→13:04)
[2022-05-28] MEDS: FERROUS SULFATE 325 MG TABLET PO SCH (08:11)
[2022-05-28] MEDS: SEVELAMER CARBONATE 800 MG TABLET PO SCH (08:11)
[2022-05-28] MEDS: PANTOPRAZOLE 40 MG TABLET PO SCH (08:11)
[2022-05-28] MEDS: SUCRALFATE 1 GM TABLET PO SCH (08:11)
[2022-05-28] MEDS: IPRATROPIUM 0.06% NASAL SPRAY 15 ML BOTTLE BOTH NARES SCH (08:27)
[2022-05-28] MEDS: INSULIN GLARGINE 100 UNIT/ML SUBCUT SCH (09:27)
[2022-05-28] MEDS ORDERED: amLODIPine 5 MG TABLET PO ONE (11:00)
== END 2022-05-28 11:41 | disposition home or self-care (01) ==
LOC: N.EDINP 23:21 → N.ED 23:21 → N.CC 05-27 05:40
PROVIDERS: ADMIT Family Medicine; ATTEND Family Medicine

== ENCOUNTER 2022-06-27 04:08 | Inpatient (IN) ==
[2022-06-27] MEDS ORDERED: NALOXONE 0.4 MG/ML VIAL ONE (04:37)
[2022-06-27] MEDS ORDERED: NALOXONE 0.4 MG/ML VIAL IV STA (04:53)
[2022-06-27 05:08] LABS: Arterial Base Excess iSTAT 6 MMOL/L (-2.5-2.5); Arterial O2 Saturation iSTAT 87 % (95-100); Arterial PCO2 iSTAT 50 MM HG (35-48); Arterial PO2 iSTAT 53 MM HG (80-95); Arterial Total CO2 iSTAT 34 MMO/L (23-27); Arterial pH iSTAT 7.417 (7.35-7.45)
[2022-06-27 05:53] LABS: Alanine Aminotransferase 12 U/L (13-56); Albumin 3.2 G/DL (3.4-5.0); Alkaline Phosphatase 143 U/L (45-117); Aspartate Amino Transferase 19 U/L (0-37); Bilirubin,Total < 0.39 MG/DL (0.20-1.00); Blood Urea Nitrogen 19 MG/DL (7-18); Calcium 9.3 MG/DL (8.5-10.1); Carbon Dioxide 28 MMOL/L (21-32); Chloride 91 MMOL/L (98-107); Glucose 183 MG/DL (74-106); Osmolality,Calculated 268.7 MOS/KG (273-304); Potassium 4.1 MMOL/L (3.5-5.1); Sodium 131 MMOL/L (136-145); Total Protein 9.7 G/DL (6.4-8.2)
[2022-06-27 06:16] LABS: Basophils % 0.3 % (0.0-0.8); Eosinophils % 0.4 % (0.00-10.9); Hemoglobin 11.8 GM/DL (12.0-16.0); Immature Granulocytes % 0.3 %; Immature Granulocytes Absolute 0.02 #; Mean Corpuscular HGB Conc 28.7 GM/DL (32-36); Mean Corpuscular Volume 84.6 FL (87-102); Mean Platelet Volume 9.7 FL (9.6-12.0); Monocytes # 0.8 10*3/uL (0.11-0.8); Monocytes % 9.8 % (1.7-12.7); Neutrophils % 76.2 % (38.7-73.9); Platelet Count 296 T/CUMM (130-400); Red Blood Count 4.86 MC/CUMM (3.8-5.5); Red Cell Distribution Width 16.1 % (9.3-17.3); White Blood Count 7.8 T/CUMM (4-12)
[2022-06-27 06:23] LABS: Hematocrit 41.1 VOL% (35.7-47.0)
[2022-06-27] MEDS ORDERED: cefTRIAXone 2,000 MG in SODIUM CHLORIDE 0.9% 100 ML IV ONE (07:10)
[2022-06-27] MEDS ORDERED: ACETAMINOPHEN 325 MG TABLET PO PRN (07:42)
[2022-06-27] MEDS ORDERED: GLUCAGON 1 MG VIAL IM PRN (07:45)
[2022-06-27] MEDS ORDERED: DEXTROSE 10% 250 ML BAG IV PRN (07:45)
[2022-06-27] MEDS ORDERED: SODIUM CHLORIDE 0.9% 250 ML IV SCH (08:00)
[2022-06-27] MEDS: HEPARIN 5,000 UNIT/1 ML VIAL SUBCUT SCH ×2 (08:12→20:09)
[2022-06-27] MEDS: amLODIPine 10 MG TABLET PO SCH (10:27)
[2022-06-27] MEDS: PANTOPRAZOLE 40 MG TABLET PO SCH (10:28)
[2022-06-27] MEDS: INSULIN LISPRO 100 UNIT/ML SUBCUT SCH ×3 (11:21→22:24)
[2022-06-27] MEDS: SEVELAMER CARBONATE 800 MG TABLET PO SCH ×2 (12:17→18:03)
[2022-06-27] MEDS ORDERED: ONDANSETRON 4 MG/2 ML VIAL IV PRN (15:29)
[2022-06-27] MEDS ORDERED: LORazepam 2 MG/1 ML VIAL IV ONE (15:29)
[2022-06-27] MEDS ORDERED: LORazepam 2 MG/1 ML VIAL IV PRN (15:34)
[2022-06-27] MEDS ORDERED: SERTRALINE 100 MG TABLET PO SCH (21:00)
[2022-06-27] MEDS: BENZTROPINE 1 MG TABLET PO SCH (22:24)
[2022-06-27] MEDS: MONTELUKAST 10 MG TABLET PO SCH (22:24)
[2022-06-27] MEDS: LOXAPINE PO SCH (22:24)
[2022-06-27] MEDS: SERTRALINE 50 MG TABLET PO SCH (22:24)
[2022-06-28] MEDS: LEVOTHYROXINE 175 MCG TABLET PO SCH (06:19)
[2022-06-28 07:03] LABS: Basophils % 0.7 % (0.0-0.8); Eosinophils # 0.1 10*3/uL (0.0-0.87); Eosinophils % 2.5 % (0.00-10.9); Hematocrit 36.2 VOL% (35.7-47.0); Hemoglobin 10.6 GM/DL (12.0-16.0); Immature Granulocytes % 1.5 %; Immature Granulocytes Absolute 0.06 #; Lymphocytes # 0.7 10*3/uL (1.4-4.0); Lymphocytes % 18.4 % (21.3-54.2); Mean Corpuscular HGB Conc 29.3 GM/DL (32-36); Mean Corpuscular Volume 84.8 FL (87-102); Mean Platelet Volume 9.8 FL (9.6-12.0); Monocytes # 0.5 10*3/uL (0.11-0.8); Monocytes % 12.9 % (1.7-12.7); Platelet Count 257 T/CUMM (130-400); Red Blood Count 4.27 MC/CUMM (3.8-5.5)
[2022-06-28 07:11] LABS: Anisocytosis 1+; Platelet Estimate Normal; Target Cells Few
[2022-06-28 07:12] LABS: Macrocytosis Slight
[2022-06-28 07:21] LABS: Calcium 8.9 MG/DL (8.5-10.1); Osmolality,Calculated 272.4 MOS/KG (273-304); Potassium 4.2 MMOL/L (3.5-5.1); Thyroid Stimulating Hormone 2.12 uIU/ml (0.358-3.74)
[2022-06-28] MEDS: HEPARIN 5,000 UNIT/1 ML VIAL SUBCUT SCH ×2 (10:00→22:38)
[2022-06-28] MEDS: INSULIN LISPRO 100 UNIT/ML SUBCUT SCH ×4 (10:06→21:18)
[2022-06-28] MEDS: amLODIPine 10 MG TABLET PO SCH (11:11)
[2022-06-28] MEDS: SEVELAMER CARBONATE 800 MG TABLET PO SCH ×3 (11:11→17:42)
[2022-06-28] MEDS: PANTOPRAZOLE 40 MG TABLET PO SCH (11:12)
[2022-06-28 11:29] LABS: Arterial Base Excess iSTAT 5 MMOL/L (-2.5-2.5); Arterial Bicarbonate iSTAT 31.7 MMOL/L (20-26); Arterial O2 Saturation iSTAT 95 % (95-100); Arterial PCO2 iSTAT 53 MM HG (35-48); Arterial PO2 iSTAT 76 MM HG (80-95); Arterial Total CO2 iSTAT 33 MMO/L (23-27); Arterial pH iSTAT 7.389 (7.35-7.45)
[2022-06-28 12:09] LABS: Hepatitis B Core IgM Quant 0.05 Index; Hepatitis B Surface Ag Quant < 0.10 Index; Hepatitis B Surface Ag Result Non-Reactive (NonReactive); Hepatitis C Virus Ab Quant 0.05 Index; Hepatitis C Virus Ab Result Non-Reactive (NonReactive)
[2022-06-28 18:26] LABS: Bacteria,Urine Moderate /HPF (Few); RBC,Urine 340 /HPF (0-4); Squamous Epithelial Cell,Urine Many /HPF (0-10)
[2022-06-28 18:29] LABS: Protein,Urine >=300 mg/dL (Negative); Urine Appearance Cloudy (Clear); Urine Color Yellow (Yellow); Urine Specific Gravity 1.025 (1.001-1.035)
[2022-06-28 18:30] LABS: Bilirubin,Urine Negative (Negative); Blood, Urine Small mg/dL (Negative); Glucose,Urine (UA) Negative (Negative); Ketones,Urine Trace mg/dL (Negative); Nitrite,Urine Negative (Negative); Urine Urobilinogen 0.2 eU/dL (<2.0)
[2022-06-28 19:08] LABS: Barbiturates Screen,Urine Negative (Negative); Benzodiazepines Screen,Urine Negative (Negative); Cannabinoid Screen,Urine Negative (Negative); Opiate Screen,Urine Negative (Negative); Phencyclidine Screen,Urine Negative (Negative)
[2022-06-28] MEDS: LOXAPINE PO SCH (21:18)
[2022-06-28] MEDS: BENZTROPINE 1 MG TABLET PO SCH (21:18)
[2022-06-28] MEDS: SERTRALINE 50 MG TABLET PO SCH (21:18)
[2022-06-28] MEDS: MONTELUKAST 10 MG TABLET PO SCH (21:18)
[2022-06-28] MEDS ORDERED: LORazepam 2 MG/1 ML VIAL IV ONE (22:00)
[2022-06-29] MEDS: LEVOTHYROXINE 175 MCG TABLET PO SCH (05:50)
[2022-06-29] MEDS: INSULIN LISPRO 100 UNIT/ML SUBCUT SCH ×4 (08:32→21:42)
[2022-06-29] MEDS: amLODIPine 10 MG TABLET PO SCH (11:13)
[2022-06-29] MEDS: HEPARIN 5,000 UNIT/1 ML VIAL SUBCUT SCH ×2 (11:13→21:47)
[2022-06-29] MEDS: SEVELAMER CARBONATE 800 MG TABLET PO SCH ×3 (11:13→16:23)
[2022-06-29] MEDS: PANTOPRAZOLE 40 MG TABLET PO SCH (11:13)
[2022-06-29] MEDS ORDERED: ZIPRASIDONE 20 MG/1 ML VIAL IM PRN (11:41)
[2022-06-29] MEDS ORDERED: DOCUSATE SODIUM 100 MG/10 ML UDCUP NG PRN (14:15)
[2022-06-29] MEDS ORDERED: POLYETHYLENE GLYCOL POWDER 17 GM PACK NG PRN (14:15)
[2022-06-29] MEDS ORDERED: hydrALAZINE 20 MG/1 ML VIAL IV PRN (17:38)
[2022-06-29] MEDS: cefTRIAXone 1,000 MG in SODIUM CHLORIDE 0.9% 100 ML IV SCH (18:17)
[2022-06-29] MEDS: BENZTROPINE 1 MG TABLET PO SCH (21:45)
[2022-06-29] MEDS: MONTELUKAST 10 MG TABLET PO SCH (21:46)
[2022-06-29] MEDS: ZIPRASIDONE 20 MG CAPSULE PO SCH (21:46)
[2022-06-29] MEDS: LOXAPINE PO SCH (21:47)
[2022-06-29] MEDS: SERTRALINE 50 MG TABLET PO SCH (21:47)
[2022-06-30] MEDS: LEVOTHYROXINE 175 MCG TABLET PO SCH (06:20)
[2022-06-30 06:35] LABS: Calcium 10.2 MG/DL (8.5-10.1); Osmolality,Calculated 290.5 MOS/KG (273-304); Potassium 4.7 MMOL/L (3.5-5.1)
[2022-06-30 06:43] LABS: Basophils # 0.1 10*3/uL (0.0-0.2); Basophils % 0.5 % (0.0-0.8); Eosinophils % 0.1 % (0.00-10.9); Hematocrit 41.8 VOL% (35.7-47.0); Hemoglobin 12.2 GM/DL (12.0-16.0); Immature Granulocytes % 0.4 %; Immature Granulocytes Absolute 0.04 #; Lymphocytes # 1.3 10*3/uL (1.4-4.0); Lymphocytes % 13.1 % (21.3-54.2); Mean Corpuscular HGB Conc 29.2 GM/DL (32-36); Mean Corpuscular Volume 83.6 FL (87-102); Mean Platelet Volume 10.6 FL (9.6-12.0); Monocytes # 1.5 10*3/uL (0.11-0.8); Monocytes % 15.5 % (1.7-12.7); Neutrophils % 70.4 % (38.7-73.9); Platelet Count 316 T/CUMM (130-400); Red Cell Distribution Width 16.2 % (9.3-17.3); White Blood Count 9.8 T/CUMM (4-12)
[2022-06-30] MEDS: INSULIN LISPRO 100 UNIT/ML SUBCUT SCH ×4 (07:21→20:38)
[2022-06-30] MEDS: SEVELAMER CARBONATE 800 MG TABLET PO SCH ×2 (15:07→17:07)
[2022-06-30] MEDS: HEPARIN 5,000 UNIT/1 ML VIAL SUBCUT SCH ×2 (15:07→20:30)
[2022-06-30] MEDS: cefTRIAXone 1,000 MG in SODIUM CHLORIDE 0.9% 100 ML IV SCH (15:09)
[2022-06-30] MEDS: ZIPRASIDONE 20 MG CAPSULE PO SCH ×2 (16:11→20:29)
[2022-06-30] MEDS: PANTOPRAZOLE 40 MG TABLET PO SCH (16:11)
[2022-06-30] MEDS: AMPICILLIN INJ 1,000 MG in SODIUM CHLORIDE 0.9% 100 ML IV SCH ×2 (16:11→22:37)
[2022-06-30] MEDS: amLODIPine 10 MG TABLET PO SCH (16:11)
[2022-06-30] MEDS: BENZTROPINE 1 MG TABLET PO SCH (20:27)
[2022-06-30] MEDS: SERTRALINE 50 MG TABLET PO SCH (20:27)
[2022-06-30] MEDS: MONTELUKAST 10 MG TABLET PO SCH (20:28)
[2022-06-30] MEDS: MEROPENEM 500 MG in SODIUM CHLORIDE 0.9% 100 ML IV SCH (20:29)
[2022-06-30] MEDS: LOXAPINE PO SCH (20:38)
[2022-06-30] MEDS: VANCOMYCIN INJ 1,000 MG in SODIUM CHLORIDE 0.9% 250 ML IV PRN ×2 (21:18→21:21)
[2022-06-30] MEDS: VANCOMYCIN INJ 2,000 MG in SODIUM CHLORIDE 0.9% 500 ML IV ONE (21:24)
[2022-06-30] MEDS: THIAMINE 200 MG/2 ML VIAL IV SCH (22:35)
[2022-07-01] MEDS: VANCOMYCIN INJ 2,000 MG in SODIUM CHLORIDE 0.9% 500 ML IV ONE (00:04)
[2022-07-01 05:16] LABS: Calcium 9.9 MG/DL (8.5-10.1); Osmolality,Calculated 287.8 MOS/KG (273-304); Potassium 4.4 MMOL/L (3.5-5.1)
[2022-07-01 05:24] LABS: Basophils % 0.1 % (0.0-0.8); Eosinophils % 0.1 % (0.00-10.9); Hemoglobin 12.2 GM/DL (12.0-16.0); Immature Granulocytes % 0.7 %; Lymphocytes # 1.3 10*3/uL (1.4-4.0); Lymphocytes % 8.3 % (21.3-54.2); Mean Corpuscular Volume 83.7 FL (87-102); Mean Platelet Volume 10.2 FL (9.6-12.0); Monocytes # 1.8 10*3/uL (0.11-0.8); Monocytes % 11.6 % (1.7-12.7); NRBC # 0.02 10*3/uL; Neutrophils % 79.2 % (38.7-73.9); Platelet Count 280 T/CUMM (130-400); Red Blood Count 5.02 MC/CUMM (3.8-5.5); Red Cell Distribution Width 16.3 % (9.3-17.3); White Blood Count 15.4 T/CUMM (4-12)
[2022-07-01] MEDS: LEVOTHYROXINE 175 MCG TABLET PO SCH (07:25)
[2022-07-01] MEDS: HEPARIN 5,000 UNIT/1 ML VIAL SUBCUT SCH ×2 (09:51→21:16)
[2022-07-01] MEDS: INSULIN LISPRO 100 UNIT/ML SUBCUT SCH ×4 (09:51→20:58)
[2022-07-01] MEDS: PANTOPRAZOLE 40 MG TABLET PO SCH (09:52)
[2022-07-01] MEDS: THIAMINE 200 MG/2 ML VIAL IV SCH ×2 (09:52→20:59)
[2022-07-01] MEDS: SEVELAMER CARBONATE 800 MG TABLET PO SCH ×3 (09:52→17:51)
[2022-07-01] MEDS: ZIPRASIDONE 20 MG CAPSULE PO SCH ×2 (09:52→20:57)
[2022-07-01] MEDS: amLODIPine 10 MG TABLET PO SCH (09:52)
[2022-07-01] MEDS: SERTRALINE 50 MG TABLET PO SCH (20:57)
[2022-07-01] MEDS: MONTELUKAST 10 MG TABLET PO SCH (20:57)
[2022-07-01] MEDS: BENZTROPINE 1 MG TABLET PO SCH (20:57)
[2022-07-01] MEDS: LOXAPINE PO SCH (20:58)
[2022-07-01] MEDS: MENTHOL/ZINC OXIDE OINT 71 GM JAR TOP SCH (20:58)
[2022-07-01] MEDS: MEROPENEM 500 MG in SODIUM CHLORIDE 0.9% 100 ML IV SCH (21:00)
[2022-07-02 05:50] LABS: Calcium 10.7 MG/DL (8.5-10.1); Osmolality,Calculated 302.4 MOS/KG (273-304); Potassium 4.1 MMOL/L (3.5-5.1)
[2022-07-02 06:03] LABS: Basophils % 0.3 % (0.0-0.8); Eosinophils % 0.2 % (0.00-10.9); Hemoglobin 12.8 GM/DL (12.0-16.0); Immature Granulocytes % 0.7 %; Immature Granulocytes Absolute 0.11 #; Lymphocytes # 1.5 10*3/uL (1.4-4.0); Lymphocytes % 9.5 % (21.3-54.2); Mean Corpuscular HGB Conc 29.6 GM/DL (32-36); Mean Corpuscular Volume 83.1 FL (87-102); Mean Platelet Volume 10.6 FL (9.6-12.0); Monocytes # 1.9 10*3/uL (0.11-0.8); Monocytes % 12.1 % (1.7-12.7); NRBC # 0.04 10*3/uL; Neutrophils % 77.2 % (38.7-73.9); Platelet Count 300 T/CUMM (130-400); Red Cell Distribution Width 16.9 % (9.3-17.3); White Blood Count 15.9 T/CUMM (4-12)
[2022-07-02 06:05] LABS: Hematocrit 43.2 VOL% (35.7-47.0)
[2022-07-02] MEDS: LEVOTHYROXINE 175 MCG TABLET PO SCH (06:41)
[2022-07-02] MEDS: INSULIN LISPRO 100 UNIT/ML SUBCUT SCH ×4 (07:57→20:26)
[2022-07-02] MEDS ORDERED: NOREPINEPHRINE 16 MG in SODIUM CHLORIDE 0.9% 234 ML IV PRN (09:55)
[2022-07-02] MEDS ORDERED: PHENYLEPHRINE DRIP 40 MG/250 ML PREMIX IV ONE (10:26)
[2022-07-02] MEDS: PHENYLEPHRINE DRIP 40 MG/250 ML PREMIX IV PRN ×3 (10:37→17:23)
[2022-07-02] MEDS ORDERED: SODIUM CHLORIDE 0.9% 250 ML IV ONE (10:37)
[2022-07-02] MEDS ORDERED: NOREPINEPHRINE DRIP 8 MG/250 ML PREMIX IV PRN (10:45)
[2022-07-02] MEDS ORDERED: ALBUMIN 25% 12.5 GM/50 ML VIAL IV ONE (10:49)
[2022-07-02 10:58] LABS: Arterial Bicarbonate iSTAT 23.9 MMOL/L (20-26); Arterial pH iSTAT 7.385 (7.35-7.45)
[2022-07-02] MEDS ORDERED: LORazepam 2 MG/1 ML VIAL IV ONE (11:18)
[2022-07-02 11:42] LABS: INR 1.1; PT Patient Result 12.2 SECS (10.1-12.1)
[2022-07-02] MEDS: MENTHOL/ZINC OXIDE OINT 71 GM JAR TOP SCH ×2 (11:59→23:13)
[2022-07-02] MEDS: HEPARIN 5,000 UNIT/1 ML VIAL SUBCUT SCH ×2 (11:59→20:26)
[2022-07-02] MEDS: SEVELAMER CARBONATE 800 MG TABLET PO SCH ×3 (11:59→16:32)
[2022-07-02] MEDS: PANTOPRAZOLE 40 MG TABLET PO SCH (12:00)
[2022-07-02] MEDS: THIAMINE 200 MG/2 ML VIAL IV SCH ×2 (12:05→21:00)
[2022-07-02] MEDS: ZIPRASIDONE 20 MG CAPSULE PO SCH ×2 (12:20→20:46)
[2022-07-02] MEDS: amLODIPine 10 MG TABLET PO SCH (12:20)
[2022-07-02 12:38] LABS: ABG Base Excess -1.8 MMOL/L (-2.5-2.5); ABG HCO3 22.7 MMOL/L (20-26); ABG Oxygen Saturation 90.3 % (95-100); ABG PCO2 43.4 MM HG (35-48); ABG PH 7.348 (7.35-7.45); ABG PO2 70.7 MM HG (80-95); ABG TCO2 21.3 MMOL/L (23-27)
[2022-07-02] MEDS ORDERED: VANCOMYCIN INJ 1,000 MG in SODIUM CHLORIDE 0.9% 250 ML IV ONE (17:00)
[2022-07-02] MEDS: BENZTROPINE 1 MG TABLET PO SCH (20:26)
[2022-07-02] MEDS: MEROPENEM 500 MG in SODIUM CHLORIDE 0.9% 100 ML IV SCH (20:26)
[2022-07-02] MEDS: SERTRALINE 50 MG TABLET PO SCH (20:27)
[2022-07-02] MEDS: MONTELUKAST 10 MG TABLET PO SCH (20:27)
[2022-07-02] MEDS: LOXAPINE PO SCH (20:46)
[2022-07-03] MEDS: PHENYLEPHRINE DRIP 40 MG/250 ML PREMIX IV PRN ×2 (00:52→08:01)
[2022-07-03 05:46] LABS: Calcium 9.5 MG/DL (8.5-10.1); Osmolality,Calculated 304.8 MOS/KG (273-304); Potassium 4.1 MMOL/L (3.5-5.1)
[2022-07-03 05:55] LABS: Basophils % 0.2 % (0.0-0.8); Eosinophils # 0.1 10*3/uL (0.0-0.87); Eosinophils % 0.8 % (0.00-10.9); Hematocrit 39.4 VOL% (35.7-47.0); Hemoglobin 11.3 GM/DL (12.0-16.0); Immature Granulocytes % 0.6 %; Lymphocytes # 1.6 10*3/uL (1.4-4.0); Lymphocytes % 9.1 % (21.3-54.2); Mean Corpuscular HGB Conc 28.7 GM/DL (32-36); Mean Corpuscular Volume 85.5 FL (87-102); Mean Platelet Volume 10.8 FL (9.6-12.0); Monocytes # 2.3 10*3/uL (0.11-0.8); Monocytes % 13.1 % (1.7-12.7); NRBC # 0.04 10*3/uL; Neutrophils % 76.2 % (38.7-73.9); Platelet Count 256 T/CUMM (130-400); Red Blood Count 4.61 MC/CUMM (3.8-5.5); Red Cell Distribution Width 16.8 % (9.3-17.3); White Blood Count 17.2 T/CUMM (4-12)
[2022-07-03] MEDS: LEVOTHYROXINE 175 MCG TABLET PO SCH (05:58)
[2022-07-03] MEDS: INSULIN LISPRO 100 UNIT/ML SUBCUT SCH ×4 (07:50→20:24)
[2022-07-03] MEDS: HEPARIN 5,000 UNIT/1 ML VIAL SUBCUT SCH ×2 (07:51→20:34)
[2022-07-03] MEDS: SEVELAMER CARBONATE 800 MG TABLET PO SCH ×3 (07:52→17:58)
[2022-07-03] MEDS: THIAMINE 200 MG/2 ML VIAL IV SCH (09:17)
[2022-07-03] MEDS: ZIPRASIDONE 20 MG CAPSULE PO SCH ×2 (09:17→20:35)
[2022-07-03] MEDS: PANTOPRAZOLE 40 MG TABLET PO SCH (09:17)
[2022-07-03] MEDS: MENTHOL/ZINC OXIDE OINT 71 GM JAR TOP SCH ×2 (09:20→20:36)
[2022-07-03] MEDS: LOXAPINE PO SCH (20:35)
[2022-07-03] MEDS: MEROPENEM 500 MG in SODIUM CHLORIDE 0.9% 100 ML IV SCH (20:35)
[2022-07-03] MEDS: BENZTROPINE 1 MG TABLET PO SCH (20:36)
[2022-07-03] MEDS: SERTRALINE 50 MG TABLET PO SCH (20:36)
[2022-07-03] MEDS: MONTELUKAST 10 MG TABLET PO SCH (20:36)
[2022-07-04 03:50] LABS: Calcium 9.6 MG/DL (8.5-10.1); Osmolality,Calculated 293.8 MOS/KG (273-304); Potassium 4.7 MMOL/L (3.5-5.1)
[2022-07-04 04:02] LABS: Basophils % 0.1 % (0.0-0.8); Eosinophils # 0.3 10*3/uL (0.0-0.87); Eosinophils % 2.2 % (0.00-10.9); Hematocrit 35.4 VOL% (35.7-47.0); Hemoglobin 10.2 GM/DL (12.0-16.0); Immature Granulocytes % 0.8 %; Immature Granulocytes Absolute 0.11 #; Lymphocytes # 1.1 10*3/uL (1.4-4.0); Mean Corpuscular HGB Conc 28.8 GM/DL (32-36); Mean Corpuscular Volume 84.9 FL (87-102); Mean Platelet Volume 10.7 FL (9.6-12.0); Monocytes # 1.3 10*3/uL (0.11-0.8); Monocytes % 9.2 % (1.7-12.7); NRBC # 0.04 10*3/uL; Neutrophils % 79.7 % (38.7-73.9); Platelet Count 258 T/CUMM (130-400); Red Blood Count 4.17 MC/CUMM (3.8-5.5); White Blood Count 14.1 T/CUMM (4-12)
[2022-07-04] MEDS: LEVOTHYROXINE 175 MCG TABLET PO SCH (05:54)
[2022-07-04] MEDS: INSULIN LISPRO 100 UNIT/ML SUBCUT SCH ×4 (08:03→20:36)
[2022-07-04] MEDS: HEPARIN 5,000 UNIT/1 ML VIAL SUBCUT SCH ×2 (08:48→19:15)
[2022-07-04] MEDS: SEVELAMER CARBONATE 800 MG TABLET PO SCH ×3 (08:49→16:58)
[2022-07-04] MEDS: PANTOPRAZOLE 40 MG TABLET PO SCH (08:51)
[2022-07-04] MEDS: ZIPRASIDONE 20 MG CAPSULE PO SCH ×2 (08:53→20:27)
[2022-07-04] MEDS: MENTHOL/ZINC OXIDE OINT 71 GM JAR TOP SCH ×2 (09:06→20:29)
[2022-07-04] MEDS ORDERED: VANCOMYCIN INJ 1,000 MG in SODIUM CHLORIDE 0.9% 250 ML IV ONE (17:00)
[2022-07-04] MEDS: MEROPENEM 500 MG in SODIUM CHLORIDE 0.9% 100 ML IV SCH (19:15)
[2022-07-04] MEDS: LOXAPINE PO SCH (20:29)
[2022-07-04] MEDS: SERTRALINE 50 MG TABLET PO SCH (20:29)
[2022-07-04] MEDS: MONTELUKAST 10 MG TABLET PO SCH (20:29)
[2022-07-04] MEDS: BENZTROPINE 1 MG TABLET PO SCH (20:29)
[2022-07-05 05:45] LABS: Calcium 9.4 MG/DL (8.5-10.1); Osmolality,Calculated 277.2 MOS/KG (273-304)
[2022-07-05 05:52] LABS: Basophils % 0.2 % (0.0-0.8); Eosinophils # 0.2 10*3/uL (0.0-0.87); Eosinophils % 1.8 % (0.00-10.9); Hematocrit 34.5 VOL% (35.7-47.0); Immature Granulocytes Absolute 0.11 #; Lymphocytes # 1.6 10*3/uL (1.4-4.0); Lymphocytes % 13.7 % (21.3-54.2); Mean Corpuscular HGB Conc 29.6 GM/DL (32-36); Mean Corpuscular Volume 83.7 FL (87-102); Mean Platelet Volume 10.5 FL (9.6-12.0); Monocytes # 1.9 10*3/uL (0.11-0.8); Monocytes % 16.1 % (1.7-12.7); NRBC # 0.06 10*3/uL; Neutrophils % 67.2 % (38.7-73.9); Platelet Count 220 T/CUMM (130-400); Red Blood Count 4.12 MC/CUMM (3.8-5.5); Red Cell Distribution Width 17.2 % (9.3-17.3); White Blood Count 11.5 T/CUMM (4-12)
[2022-07-05 05:53] LABS: Hemoglobin 10.2 GM/DL (12.0-16.0)
[2022-07-05 06:01] LABS: Eosinophils 2 % (0-10); Lymphocytes 13 % (20-55); Nucleated Red Blood Cells 1 /100 WBC (0-5); Target Cells Few; Total Cells Counted 100
[2022-07-05 06:02] LABS: Anisocytosis 1+; Polychromasia Slight
[2022-07-05] MEDS: LEVOTHYROXINE 175 MCG TABLET PO SCH (06:32)
[2022-07-05] MEDS: PANTOPRAZOLE 40 MG TABLET PO SCH (09:21)
[2022-07-05] MEDS: AMPICILLIN 500 MG CAPSULE PO SCH ×4 (09:21→20:57)
[2022-07-05] MEDS: SEVELAMER CARBONATE 800 MG TABLET PO SCH ×3 (09:21→16:50)
[2022-07-05] MEDS: ZIPRASIDONE 20 MG CAPSULE PO SCH ×2 (09:21→20:48)
[2022-07-05] MEDS: HEPARIN 5,000 UNIT/1 ML VIAL SUBCUT SCH ×2 (09:22→20:57)
[2022-07-05] MEDS: MENTHOL/ZINC OXIDE OINT 71 GM JAR TOP SCH ×2 (09:55→23:00)
[2022-07-05] MEDS: INSULIN LISPRO 100 UNIT/ML SUBCUT SCH ×4 (09:55→20:43)
[2022-07-05] MEDS: BENZTROPINE 1 MG TABLET PO SCH (20:49)
[2022-07-05] MEDS: SERTRALINE 50 MG TABLET PO SCH (20:49)
[2022-07-05] MEDS: MONTELUKAST 10 MG TABLET PO SCH (20:49)
[2022-07-05] MEDS: LOXAPINE PO SCH (20:57)
[2022-07-06] MEDS ORDERED: hydrOXYzine HCL 25 MG TABLET PO PRN (00:35)
[2022-07-06 05:11] LABS: Osmolality,Calculated 272.8 MOS/KG (273-304); Potassium 4.1 MMOL/L (3.5-5.1)
[2022-07-06 05:31] LABS: Basophils % 0.5 % (0.0-0.8); Eosinophils # 0.2 10*3/uL (0.0-0.87); Eosinophils % 2.8 % (0.00-10.9); Hematocrit 36.7 VOL% (35.7-47.0); Hemoglobin 10.8 GM/DL (12.0-16.0); Immature Granulocytes % 1.3 %; Immature Granulocytes Absolute 0.11 #; Lymphocytes # 1.3 10*3/uL (1.4-4.0); Lymphocytes % 15.4 % (21.3-54.2); Mean Corpuscular HGB Conc 29.4 GM/DL (32-36); Mean Platelet Volume 10.5 FL (9.6-12.0); Monocytes # 1.5 10*3/uL (0.11-0.8); Monocytes % 18.1 % (1.7-12.7); NRBC # 0.03 10*3/uL; Neutrophils % 61.9 % (38.7-73.9); Platelet Count 236 T/CUMM (130-400); Red Blood Count 4.42 MC/CUMM (3.8-5.5); White Blood Count 8.2 T/CUMM (4-12)
[2022-07-06 05:42] LABS: Band Neutrophils 3 % (0-10); Eosinophils 1 % (0-10); Lymphocytes 17 % (20-55); Macrocytosis 1+; Platelet Estimate Normal; Total Cells Counted 100
[2022-07-06 05:43] LABS: Anisocytosis Slight; Tear Drop Cells Few
[2022-07-06] MEDS: LEVOTHYROXINE 175 MCG TABLET PO SCH (06:23)
[2022-07-06] MEDS: INSULIN LISPRO 100 UNIT/ML SUBCUT SCH ×2 (10:14→13:05)
[2022-07-06] MEDS: AMPICILLIN 500 MG CAPSULE PO SCH ×2 (10:16→13:28)
[2022-07-06] MEDS: ZIPRASIDONE 20 MG CAPSULE PO SCH (10:17)
[2022-07-06] MEDS: SEVELAMER CARBONATE 800 MG TABLET PO SCH ×2 (10:20→13:28)
[2022-07-06] MEDS: PANTOPRAZOLE 40 MG TABLET PO SCH (10:22)
[2022-07-06] MEDS: HEPARIN 5,000 UNIT/1 ML VIAL SUBCUT SCH (10:27)
[2022-07-06 12:17] VITALS: BP 141/72
[2022-07-06] MEDS: MENTHOL/ZINC OXIDE OINT 71 GM JAR TOP SCH (13:28)
[2022-07-06] MEDS ORDERED: AMPICILLIN 500 MG CAPSULE PO SCH (21:00)
== END 2022-07-06 14:35 | disposition home or self-care (01) | DRG 91 ==
LOC: EDBD → EDUNIT# → N.EDINP 04:08 → N.ED 04:08 → SUATTDRO 07:42 → N.5E 08:29 → SUATTDRO 06-28 07:43 → N.2E 07-01 11:33 → N.ICU 07-02 09:58 → N.CC 07-03 11:40 → N.2E 07-04 19:41
PROVIDERS: ADMIT Internal Medicine; ATTEND Hospitalist